=== PATIENT | male | born 1950 | race Two or more races ===

== ENCOUNTER 2019-12-28 05:08 | Inpatient (IN) | payer OTHER ==
[2019-12-28] VITALS (20 sets, daily range): BP systolic 102–138; BP diastolic 60–83
[~2019-12-28] VITALS: Ht 172.7 cm; Wt 83.5 kg
[~2019-12-28 05:08] MED LIST: MULTIVITAMINS1 EAC2 ORAL; vit c PO
[2019-12-28] MEDS ORDERED: ceFAZolin sod 1 GM in NS 55 ML IVPB ONE (07:00)
[2019-12-28] MEDS ORDERED: Bupivacaine 0.5% Inj 30 ml vial INJ ONE (07:15)
[2019-12-28] MEDS ORDERED: ProvayBlue 5mg/ml 10ml amp INJ ONE (07:15)
[2019-12-28] MEDS ORDERED: Succinylcholine 20mg/ml 10ml vial ONE (07:16)
[2019-12-28] MEDS ORDERED: Rocuronium Bromide 50mg/5ml Inj IV ONE (07:16)
[2019-12-28] MEDS ORDERED: Lidocaine 1% MPF 10mg/ml 5ml ONE ×3 (07:30→10:56)
[2019-12-28] MEDS ORDERED: LR 1000ml ONE (08:00)
[2019-12-28] MEDS ORDERED: NS Irrig 1000ml ONE (08:00)
[2019-12-28] MEDS ORDERED: Sterile Water Irrig 1000ml IRRIG ONE (08:00)
--- NOTE | 2019-12-28 08:16 | Pre-Procedure Note/Attestation ---
Pre-Procedure Note/Attestation Complete Prior to Procedure Planned Procedure: not applicable Procedure Narrative: laparoscopic radical prostatectomy Indications for Procedure Pre-Operative Diagnosis: prostate cancer Attestation I attest that I discussed the nature of the procedure; its benefits; risks and complications; and alternatives (and the risks and benefits of such alternatives ), prior to the procedure, with the patient (or the patient's legal account representative). I attest that, if there was a reasonable possibility of needing a blood transfusion, the patient (or the patient's legal account representative) was given the [facility] standardized written summary, pursuant to the Porfirio [place] Blood Safety Act ([place] Health and Safety Code # 1645, as amended). I attest that I re-evaluated the patient just prior to the surgery and that there has been no change in the patient's H&P, except as documented below: Mariano Sims MD December 28, 2019 08:16
[2019-12-28] MEDS ORDERED: Midazolam 2mg/2ml Inj ONE (08:18)
[2019-12-28] MEDS ORDERED: fentaNYL 100 mcg/2 mL IV ONE (08:18)
[2019-12-28] MEDS ORDERED: Morphine Sulfate 10mg/ml Inj ONE (08:40)
[2019-12-28] MEDS ORDERED: Hydromorphone 0.5mg/0.5ml inj IVP PRN (09:00)
[2019-12-28] MEDS ORDERED: DiphenhydrAMINE 50mg/ml Inj IVP PRN (09:00)
[2019-12-28] MEDS ORDERED: Labetalol 5mg/ml 20ml vial IV PRN (09:00)
[2019-12-28] MEDS ORDERED: Acetaminophen (Non formulary) 100 ML IV ONE (09:00)
[2019-12-28] MEDS ORDERED: Metoclopramide 10mg/2ml Inj IVP PRN (09:00)
[2019-12-28] MEDS ORDERED: fentaNYL 100 mcg/2 mL IV PRN (09:00)
[2019-12-28] MEDS ORDERED: Glycopyrrolate 0.2mg/ml 1ml Vial ONE (09:24)
[2019-12-28] MEDS ORDERED: Neostigmine 1mg/ml 10ml Inj ONE (09:24)
[2019-12-28] MEDS ORDERED: ePHEDrine 50mg/ml Inj ONE (09:24)
[2019-12-28] MEDS ORDERED: NS Irrig 1000ml IRRIG ONE (09:31)
--- NOTE | 2019-12-28 10:18 | Anethesia Preoperative Eval ---
Anesthesia Pre-op PMH/ROS General Date of Evaluation: December 28, 2019 Time of Evaluation: 08:00 Anesthesiologist: Gigi ASA Score: ASA 2 Mallampati Score Class I : Soft palate, uvula, fauces, pillars visible Class II: Soft palate, uvula, fauces visible Class III: Soft palate, base of uvula visible Class IV: Only hard plate visible Mallampati Classification: Class II Surgeon: Ashleigh Diagnosis: Prostate CA Surgical Procedure: Radical Prostectomy Anesthesia History: none Social History: current smoker Allergies: Coded Allergies: No Known Allergies (Unverified , 12/27/19) Medications: see eMAR Patient NPO?: Yes NPO Date: December 28, 2019 NPO Time: 00:01 Past Medical History Cardiovascular: Denies: HTN, CAD, MO, valve dz, arrhythmia, other Pulmonary: Denies: asthma, COPD, SHASTA, other Gastrointestinal/Genitourinary: Denies: GERD, CRI, ESRD, other Neurologic/Psychiatric: Reports: depression/anxiety; Denies: dementia, CVA, TIA, other Endocrine: Denies: DM, hypothyroidism, steroids, other HEENT: Denies: cataract (L), cataract (R), glaucoma, CHILKOOT (L), CHILKOOT (R), other Hematology/Immune: Denies: anemia, DVT, bleeding disorder, other Musculoskeletal/Integumentary: Denies: OA, RA, DJD, DDD, edema, other PSxH Narrative: umbilical hernia repair Anesthesia Pre-op Phys. Exam Physician Exam Last Vital Signs Date Time Temp Pulse Resp B/P (MAP) Pulse Ox O2 Delivery O2 Flow Rate FiO2 12/28/19 05:55 Room Air 12/28/19 05:42 97.4 68 18 138/83 (101) 100 Constitutional: NAD Neurologic: CN 2-12 intact Cardiovascular: RRR Respiratory: CTA Gastrointestinal: S/NT/ND Airway Exam Mallampati Classification 2 Mallampati Score: Class II MO: full ROM: full Teeth: missing Dentures: no upper, no lower Anesthesia Pre-op A/P Labs see chart Studies Pre-op Studies: EKG - SR Risk Assessment & Plan Plan: General Status Change Before Surgery: No Pre-Antibiotics Drug: ancef Given Within 1 Hr of Incision: Yes Time Given: 08:20 Erin Yu CRNA December 28, 2019 10:18
[2019-12-28] MEDS ORDERED: Ketorolac 30mg Inj ONE (10:59)
[2019-12-28] MEDS ORDERED: Duramorph PF 10mg/10ml amp ONE (11:06)
--- NOTE | 2019-12-28 11:12 | Brief Operative Note ---
Immediate Post Operative Note Operative Note Pre-op Diagnosis: prostate cancer Procedure: laparoscopic radical prostatectomy Post-op Diagnosis: same Post-op Diagnosis: same as pre-op Surgeon: Sixto Sims Financial Project Manager: Rodriguez Hayes Anesthesia: general Specimen: yes Complications: none Condition: stable Fluids: 3000 Estimated Blood Loss: minimal Implant(s) used?: No Mariano Sims MD December 28, 2019 11:12
[2019-12-28] MEDS ORDERED: Ketorolac 30mg Inj IV PRN (11:15)
[2019-12-28] MEDS ORDERED: HYDROcodone/Acetamin 5/325 tab ORAL PRN (11:15)
--- NOTE | 2019-12-28 11:41 | Immediate Post-Op Evaluation ---
Immediate Post-Op Evalulation Immediate Post-Op Evalulation Procedure: Lap Radical Prostatectomy Date of Evaluation: December 28, 2019 Time of Evaluation: 11:30 IV Fluids: 3000 Blood Products: 0 Estimated Blood Loss: 250 Urinary Output: 100 Blood Pressure Systolic: 130 Blood Pressure Diastolic: 60 Pulse Rate: 75 Respiratory Rate: 14 O2 Sat by Pulse Oximetry: 98 Temperature (Fahrenheit): 97.6 Pain Score (1-10): 0 Nausea: No Vomiting: No Complications none Patient Status: awake, reacts, patent Hydration Status: adequate Drug: ancef Given Within 1 Hr of Incision: Yes Time Given: 08:30 Erin Yu CRNA December 28, 2019 11:41
[2019-12-28 13:05] LABS: ANION GAP 8 mmol/L (5-15); BLOOD UREA NITROGEN 13 mg/dL (7-18); CALCIUM 7.9 MG/DL (8.5-10.1); CARBON DIOXIDE 29 MMOL/L (21-32); CHLORIDE 105 MMOL/L (98-107); CREATININE 0.8 MG/DL (0.55-1.30); POTASSIUM 4.3 MMOL/L (3.5-5.1); SODIUM 142 MMOL/L (136-145)
[2019-12-28 13:26] LABS: HEMATOCRIT 38.1 % (42.0-52.0); HEMOGLOBIN 13.1 G/DL (14.2-18.0); MEAN CORPUSCULAR VOLUME 84 FL (80-99); PLATELET COUNT 466 K/UL (150-450); RED BLOOD COUNT 4.55 M/UL (4.70-6.10); RED CELL DISTRIBUTION WIDTH 15.7 % (11.6-14.8)
[2019-12-28 13:35] LABS: WHITE BLOOD COUNT 25.2 K/UL (4.8-10.8)
[2019-12-28] MEDS: D5 1/2NS w/KCl 20mEq 1,000 ML IV SCH (17:04)
[2019-12-28] MEDS: Docusate 100mg cap ORAL SCH (17:04)
[2019-12-28] MEDS: ceFAZolin 2gm/50ml Premix 50 ML IV SCH (17:09)
[2019-12-29] MEDS: ceFAZolin 2gm/50ml Premix 50 ML IV SCH (00:31)
[2019-12-29] MEDS: D5 1/2NS w/KCl 20mEq 1,000 ML IV SCH (00:31)
[2019-12-29 04:00] VITALS: BP 106/69
[2019-12-29 05:32] LABS: HEMATOCRIT 34.1 % (42.0-52.0); HEMOGLOBIN 11.6 G/DL (14.2-18.0); MEAN CORPUSCULAR VOLUME 83 FL (80-99); PLATELET COUNT 616 K/UL (150-450); RED BLOOD COUNT 4.11 M/UL (4.70-6.10); RED CELL DISTRIBUTION WIDTH 15.8 % (11.6-14.8)
[2019-12-29 05:46] LABS: WHITE BLOOD COUNT 33.7 K/UL (4.8-10.8)
[2019-12-29 05:59] LABS: ANION GAP 12 mmol/L (5-15); BLOOD UREA NITROGEN 22 mg/dL (7-18); CALCIUM 8.1 MG/DL (8.5-10.1); CARBON DIOXIDE 24 MMOL/L (21-32); CHLORIDE 104 MMOL/L (98-107); CREATININE 1.6 MG/DL (0.55-1.30); SODIUM 140 MMOL/L (136-145)
[2019-12-29 08:00] VITALS: BP 120/83
[2019-12-29] MEDS ORDERED: D5 1/2NS w/KCl 20mEq 1,000 ML IV SCH (10:00)
[2019-12-29] MEDS: Docusate 100mg cap ORAL SCH ×2 (10:06→17:43)
[2019-12-29] MEDS: D5 1/2NS 1,000 ML IV SCH ×2 (11:07→20:45)
[2019-12-29 12:00] VITALS: BP 133/93
--- NOTE | 2019-12-29 13:36 | 48 Hour Post Anesthesia Eval ---
Post Anesthesia Evaluation Procedure: Lap Radical Prostatectomy Date of Evaluation: December 29, 2019 Time of Evaluation: 09:20 Blood Pressure Systolic: 124 0: 78 Pulse Rate: 124 Respiratory Rate: 22 Temperature (Fahrenheit): 98.5 O2 Sat by Pulse Oximetry: 94 Airway: patent Nausea: No Vomiting: No Pain Intensity: 3 Hydration Status: adequate Cardiopulmonary Status: stable tachycardic, BP OK, no dyspnea, low urine output Mental Status/LOC: patient returned to baseline Follow-up Care/Observations: follow up on vitals, increase I/V fluids to 150 cc/hr Post-Anesthesia Complications: none Follow-up care needed: N/A Angel Jeffers MD December 29, 2019 13:36
[2019-12-29 16:00] VITALS: BP 144/95
--- NOTE | 2019-12-29 16:08 | Consultation ---
History of Present Illness General Date patient seen: December 29, 2019 Present Illness HPI 69M POD #1 s/p urological surgery with abdominal distention. hx of prostate s/ p Lap Radical Prostatectomy. surgery called to evaluate and assist with post op care. patient seen, chart reviewed, patient examined. states he is okay but feels uncomfortable tolerated clears this AM so far but not much appetite Allergies: Coded Allergies: No Known Allergies (Unverified , 12/27/19) COVID-19 Screening Contact w/high risk pt: No Recent Travel to affected area: No Experienced COVID-19 symptoms?: No Medication History Scheduled Multivitamins* (Multivitamins*), 1 TAB ORAL DAILY, (Reported) [vit c], 500 MG PO DAILY, (Reported) Patient History History Provided By: Patient, Medical Record, PMD Healthcare decision maker Resuscitation status Advanced Directive on File Past Medical/Surgical History Past Medical/Surgical History: (1) Prostate CA Review of Systems Review of Symptoms General ROS: no weight loss or fever Psychological ROS: no depression or mood changes, no memory loss Ophthalmic ROS: no visual changes or eye irritation ENT ROS: no nasal congestion, hearing loss, dizziness Allergy and Immunology ROS: no allergic symptoms or urticaria Hematological and Lymphatic ROS: no swollen glands, unusual bleeding or bruising Endocrine ROS: no polyuria, polydipsia, weight changes, temperature intolerance Respiratory ROS: no cough, shortness of breath, or wheezing Cardiovascular ROS: no chest pain or dyspnea on exertion Gastrointestinal ROS: denies abdominal pain, bright red blood in stool. Musculoskeletal ROS: no myalgias or arthralgias Neurological ROS: no TIA or stroke symptoms Dermatological ROS: no new or changing skin lesions, rashes or pruritis Physical Exam Physical Exam General appearance: alert, cooperative, no distress, appears stated age Head: Normocephalic, without obvious abnormality, atraumatic Eyes: conjunctivae/corneas clear. PERRL, EOM's intact. Fundi benign Throat: Lips, mucosa, and tongue normal. Teeth and gums normal Neck: supple, symmetrical, trachea midline, no adenopathy, thyroid: not enlarged, symmetric, no tenderness/mass/nodules, no carotid bruit and no JVD Lungs: clear to auscultation bilaterally Heart: regular rate and rhythm, S1, S2 normal, no murmur, click, rub or gallop Abdomen: soft, non-tender. Bowel sounds absent, distended, wounds dressings saturated. No masses, no organomegaly Extremities: extremities normal, atraumatic, no cyanosis or edema Pulses: 2+ and symmetric Skin: Skin color, texture, turgor normal. No rashes or lesions Neurologic: Grossly normal Last 24 Hour Vital Signs Date Time Temp Pulse Resp B/P (MAP) Pulse Ox O2 Delivery O2 Flow Rate FiO2 12/29/19 13:36 124 22 94 12/29/19 12:00 98.4 119 20 133/93 (106) 94 12/29/19 10:36 98.6 12/29/19 09:00 Room Air 12/29/19 08:00 98.6 132 21 120/83 (95) 98 12/29/19 04:00 98.6 102 17 106/69 (81) 94 12/28/19 23:56 98.2 106 16 102/65 (77) 93 12/28/19 21:00 Room Air 12/28/19 20:00 98.4 93 17 109/72 (84) 94 12/28/19 17:41 97.7 12/28/19 16:30 97.7 77 18 110/62 (78) 97 Intake and Output 12/28/19 12/29/19 19:00 07:00 Intake Total 3400 ml 950 ml Output Total 950 ml 200 ml Balance 2450 ml 750 ml Intake IV Total 3400 ml 950 ml Output Urine Total 700 ml 200 ml Estimated Blood Loss 250 ml Laboratory Tests Test 12/29/19 04:45 White Blood Count 33.7 K/UL (4.8-10.8) *H Red Blood Count 4.11 M/UL (4.70-6.10) L Hemoglobin 11.6 G/DL (14.2-18.0) L Hematocrit 34.1 % (42.0-52.0) L Mean Corpuscular Volume 83 FL (80-99) Mean Corpuscular Hemoglobin 28.1 PG (27.0-31.0) Mean Corpuscular Hemoglobin Concent 33.9 G/DL (32.0-36.0) Red Cell Distribution Width 15.8 % (11.6-14.8) H Platelet Count 616 K/UL (150-450) H Mean Platelet Volume 7.2 FL (6.5-10.1) Neutrophils (%) (Auto) % (45.0-75.0) Lymphocytes (%) (Auto) % (20.0-45.0) Monocytes (%) (Auto) % (1.0-10.0) Eosinophils (%) (Auto) % (0.0-3.0) Basophils (%) (Auto) % (0.0-2.0) Differential Total Cells Counted 100 Neutrophils % (Manual) 90 % (45-75) H Lymphocytes % (Manual) 2 % (20-45) L Monocytes % (Manual) 6 % (1-10) Eosinophils % (Manual) 0 % (0-3) Basophils % (Manual) 0 % (0-2) Band Neutrophils 2 % (0-8) Platelet Estimate Increased H Platelet Morphology Normal Polychromasia 1+ Anisocytosis 1+ Sodium Level 140 MMOL/L (136-145) Potassium Level 5.0 MMOL/L (3.5-5.1) Chloride Level 104 MMOL/L (98-107) Carbon Dioxide Level 24 MMOL/L (21-32) Anion Gap 12 mmol/L (5-15) Blood Urea Nitrogen 22 mg/dL (7-18) H Creatinine 1.6 MG/DL (0.55-1.30) #H Estimat Glomerular Filtration Rate 43.3 mL/min (>60) Glucose Level 202 MG/DL (74-106) H Calcium Level 8.1 MG/DL (8.5-10.1) L Height (Feet): 5 Height (Inches): 8.00 Weight (Pounds): 184 Medications Current Medications Medications (Trade) Dose Ordered Sig/Juan Carlos Route PRN Reason Start Time Stop Time Status Last Admin Dose Admin Acetaminophen (Tylenol) 650 mg Q4H PRN ORAL FEVER 12/28/19 11:15 01/27/20 11:14 Acetaminophen (Tylenol) 650 mg Q6H PRN ORAL Mild Pain (Pain Scale 1-3) 12/28/19 11:15 01/27/20 11:14 Acetaminophen/ Hydrocodone Bitart (Hawkins 5/325) 1 tab Q4H PRN ORAL Moderate Pain (Pain Scale 4-6) 12/28/19 11:15 01/04/20 11:14 12/28/19 17:11 Dextrose/Sodium Chloride 1,000 ml @ 100 mls/hr Q10H IV 12/29/19 10:45 01/28/20 10:44 12/29/19 11:07 Docusate Sodium (Colace) 100 mg TWICE A DAY ORAL 12/28/19 18:00 01/27/20 17:59 12/29/19 10:06 Hydromorphone HCl (Dilaudid) 2 mg Q3H PRN IVP pain score 7-10 12/28/19 11:15 01/04/20 11:14 12/29/19 10:06 Ondansetron HCl (Zofran) 4 mg Q6H PRN IVP Nausea & Vomiting 12/28/19 11:15 01/27/20 11:14 Temazepam (RestoriL) 7.5 mg DAILYPRN PRN ORAL Insomnia 12/28/19 11:15 01/04/20 11:14 Assessment/Plan Problem List: (1) Prostate CA Assessment & Plan: Abdominal Distention: Pain management: Diet: npo activity as tolerated incentive spirometry goldsmith to stay in clears okay iv fluids abx will monitor abdominal exam dressing change tomorrow thank you ICD Codes: C61 - Malignant neoplasm of prostate SNOMED: [id number] Thomas Lomeli December 29, 2019 16:08
--- NOTE | 2019-12-29 16:30 | Consultation ---
DATE OF CONSULTATION: 12/29/2019 INTERNAL MEDICINE CONSULTATION HISTORY OF PRESENT ILLNESS: This is a 69-year-old male who has undergone prostatectomy yesterday with Dr. Mariano Sims. This was a laparoscopic radical prostatectomy and was uncomplicated with minimal blood loss. The patient states he is feeling better postop day 1. He is on a clear liquid diet. His EBL has been about 250 mL yesterday and his vital signs have been stable overnight. The patient was found to have significant leukocytosis postoperatively. [place] [address], although, he is clinically appears nontoxic. Creatinine is up to 1.6. PAST MEDICAL HISTORY: Notable for prostate CA, hyperlipidemia, history of myelofibrosis, and left inguinal hernia. PAST SURGICAL HISTORY: The patient reports previous prostate surgeries. ALLERGIES: None. REVIEW OF SYSTEMS: Denies any headaches, hematemesis, melena, hematochezia, night sweats, or weight loss. It is noted that his preoperative white count was 15.9 with a hemoglobin of 14. HIV has been negative. PHYSICAL EXAMINATION: GENERAL: Reveals 69-year-old male. HEENT: Unremarkable. CHEST: Clear breath sounds. ABDOMEN: Soft. . NEUROLOGIC: Nonfocal. LABORATORY AND DIAGNOSTIC DATA: Lab testing at this time notable for white count 33,000. Remaining labs are unremarkable. Creatinine 1.6. IMPRESSION: 1. Postoperative day 1 status post prostatectomy. 2. History of myelofibrosis with leukocytosis. 3. Mild renal insufficiency. DISCUSSION: Admitted to the hospital. We will increase IV fluid hydration. Follow CBC. 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 Scottie Mcconnell M.D. DR: Ginger JOB#: [id number] CC:
[2019-12-29 20:00] VITALS: BP 161/108
[2019-12-29 21:59] LABS: HEMATOCRIT 28.3 % (42.0-52.0); HEMOGLOBIN 8.9 G/DL (14.2-18.0); MEAN CORPUSCULAR VOLUME 88 FL (80-99); PLATELET COUNT 533 K/UL (150-450); RED CELL DISTRIBUTION WIDTH 17.7 % (11.6-14.8)
[2019-12-29 22:04] LABS: WHITE BLOOD COUNT 27.2 K/UL (4.8-10.8)
[2019-12-29 22:27] LABS: ANION GAP 11 mmol/L (5-15); BLOOD UREA NITROGEN 28 mg/dL (7-18); CALCIUM 7.3 MG/DL (8.5-10.1); CARBON DIOXIDE 25 MMOL/L (21-32); CHLORIDE 104 MMOL/L (98-107); CREATININE 1.9 MG/DL (0.55-1.30); POTASSIUM 4.5 MMOL/L (3.5-5.1); SODIUM 140 MMOL/L (136-145)
[2019-12-30] VITALS: BP 124/73
[2019-12-30 04:00] VITALS: BP 115/72
[2019-12-30] MEDS: D5 1/2NS 1,000 ML IV SCH ×2 (05:48→17:19)
[2019-12-30 05:53] LABS: HEMATOCRIT 23.3 % (42.0-52.0); MEAN CORPUSCULAR VOLUME 83 FL (80-99); PLATELET COUNT 442 K/UL (150-450); RED BLOOD COUNT 2.82 M/UL (4.70-6.10); RED CELL DISTRIBUTION WIDTH 15.2 % (11.6-14.8); WHITE BLOOD COUNT 21.7 K/UL (4.8-10.8)
[2019-12-30 06:11] LABS: ANION GAP 8 mmol/L (5-15); BLOOD UREA NITROGEN 28 mg/dL (7-18); CARBON DIOXIDE 26 MMOL/L (21-32); CHLORIDE 106 MMOL/L (98-107); CREATININE 1.6 MG/DL (0.55-1.30); POTASSIUM 4.6 MMOL/L (3.5-5.1); SODIUM 140 MMOL/L (136-145)
[2019-12-30 08:00] VITALS: BP 123/72
[2019-12-30] MEDS: Docusate 100mg cap ORAL SCH ×2 (08:42→18:23)
[2019-12-30] MEDS: ceFAZolin sod 1 GM in D5W 55 ML IVPB SCH ×2 (08:42→17:19)
--- NOTE | 2019-12-30 10:45 | Diagnostic Imaging Report ---
EXAM: ULTRASOUND US Renal Comp CLINICAL HISTORY: Abdominal pain. Status post prostatectomy. COMPARISON: None TECHNIQUE: Ultrasound examination of the kidneys includes grayscale images, and color and spectral doppler analysis. FINDINGS: The right kidney measures 11.8 x 6.6 x 6.6 cm and the left kidney measures 13.1 x 6.3 x 6.2 cm. Cortical thickness and echogenicity are within normal limits. There is no hydronephrosis or stone seen bilaterally. Cuevas catheter noted in the bladder. IMPRESSION: NO SIGN OF ACUTE DISEASE.
--- NOTE | 2019-12-30 11:37 | Pulmonology Progress Note ---
Subjective Interval Events: None new Constitutional: Reports: no symptoms HEENT: Repors: no symptoms Respiratory: Reports: no symptoms Cardiovascular: Reports: no symptoms Allergies: Coded Allergies: No Known Allergies (Unverified , 12/27/19) Objective Last 24 Hour Vital Signs Date Time Temp Pulse Resp B/P (MAP) Pulse Ox O2 Delivery O2 Flow Rate FiO2 12/30/19 09:00 Room Air 12/30/19 08:00 97.8 109 20 123/72 (89) 98 12/30/19 04:00 98.3 95 19 115/72 (86) 96 12/30/19 00:00 99.0 108 20 124/73 (90) 94 12/29/19 21:00 Room Air 12/29/19 20:00 98.0 132 19 161/108 (125) 94 12/29/19 18:14 98.1 12/29/19 16:00 98.1 115 21 144/95 (111) 95 12/29/19 13:36 124 22 94 12/29/19 12:00 98.4 119 20 133/93 (106) 94 Intake and Output 12/29/19 12/30/19 19:00 07:00 Intake Total 900 ml Output Total 825 ml Balance 75 ml Intake IV Total 900 ml Output Urine Total 575 ml Estimated Blood Loss 250 ml # Voids 1 General Appearance: no acute distress HEENT: normocephalic Respiratory: chest wall non-tender, lungs clear Cardiovascular: normal peripheral pulses Abdomen: normal bowel sounds Microbiology Date/Time Source Procedure Growth Status 12/28/19 05:30 Nasal Nares MRSA Culture - Final NO METHICILLIN RESISTANT STAPH AUREUS... Complete 12/27/19 12:10 Nasopharynx Coronavirus COVID-19 PCR ([facility]) - Final Complete Laboratory Tests 12/29/19 21:45: White Blood Count 27.2*H, Red Blood Count 3.20L, Hemoglobin 8.9L, Hematocrit 28.3L, Mean Corpuscular Volume 88, Mean Corpuscular Hemoglobin 27.9, Mean Corpuscular Hemoglobin Concent 31.6L, Red Cell Distribution Width 17.7H, Platelet Count 533H, Mean Platelet Volume 7.1, Neutrophils (%) (Auto) , Lymphocytes (%) (Auto) , Monocytes (%) (Auto) , Eosinophils (%) (Auto) , Basophils (%) (Auto) , Differential Total Cells Counted 100, Neutrophils % ( Manual) 89H, Lymphocytes % (Manual) 3L, Monocytes % (Manual) 6, Eosinophils % ( Manual) 1, Basophils % (Manual) 0, Band Neutrophils 1, Nucleated Red Blood Cells 2, Platelet Estimate IncreasedH, Platelet Morphology Normal, Polychromasia 1+, Hypochromasia 1+, Anisocytosis 1+, Sodium Level 140, Potassium Level 4.5, Chloride Level 104, Carbon Dioxide Level 25, Anion Gap 11, Blood Urea Nitrogen 28H, Creatinine 1.9H, Estimat Glomerular Filtration Rate 35.5, Glucose Level 159H, Calcium Level 7.3L 12/30/19 05:10: White Blood Count 21.7H, Red Blood Count 2.82L, Hemoglobin 8.0L, Hematocrit 23.3L, Mean Corpuscular Volume 83, Mean Corpuscular Hemoglobin 28.5, Mean Corpuscular Hemoglobin Concent 34.5, Red Cell Distribution Width 15.2H, Platelet Count 442, Mean Platelet Volume 6.1L, Neutrophils (%) (Auto) , Lymphocytes (%) (Auto) , Monocytes (%) (Auto) , Eosinophils (%) (Auto) , Basophils (%) (Auto) , Differential Total Cells Counted 100, Neutrophils % ( Manual) 91H, Lymphocytes % (Manual) 6L, Monocytes % (Manual) 1, Eosinophils % ( Manual) 1, Basophils % (Manual) 1, Band Neutrophils 0, Nucleated Red Blood Cells 2, Platelet Estimate Adequate, Platelet Morphology Normal, Hypochromasia 2 +, Anisocytosis 1+, Sodium Level 140, Potassium Level 4.6, Chloride Level 106, Carbon Dioxide Level 26, Anion Gap 8, Blood Urea Nitrogen 28H, Creatinine 1.6H, Estimat Glomerular Filtration Rate 43.3, Glucose Level 141H, Calcium Level 7.0L Current Medications Medications (Trade) Dose Ordered Sig/Juan Carlos Route PRN Reason Start Time Stop Time Status Last Admin Dose Admin Acetaminophen (Tylenol) 650 mg Q4H PRN ORAL FEVER 12/28/19 11:15 01/27/20 11:14 Acetaminophen (Tylenol) 650 mg Q6H PRN ORAL Mild Pain (Pain Scale 1-3) 12/28/19 11:15 01/27/20 11:14 Acetaminophen/ Hydrocodone Bitart (Curran 5/325) 1 tab Q4H PRN ORAL Moderate Pain (Pain Scale 4-6) 12/28/19 11:15 01/04/20 11:14 12/28/19 17:11 Cefazolin Sodium 1 gm/Dextrose 55 ml @ 110 mls/hr Q8H IVPB 12/30/19 09:00 01/06/20 08:59 12/30/19 08:42 Dextrose/Sodium Chloride 1,000 ml @ 100 mls/hr Q10H IV 12/29/19 10:45 01/28/20 10:44 12/29/19 20:45 Docusate Sodium (Colace) 100 mg TWICE A DAY ORAL 12/28/19 18:00 01/27/20 17:59 12/30/19 08:42 Hydromorphone HCl (Dilaudid) 2 mg Q3H PRN IVP pain score 7-10 12/28/19 11:15 01/04/20 11:14 12/30/19 03:16 Ondansetron HCl (Zofran) 4 mg Q6H PRN IVP Nausea & Vomiting 12/28/19 11:15 01/27/20 11:14 Temazepam (RestoriL) 7.5 mg DAILYPRN PRN ORAL Insomnia 12/28/19 11:15 01/04/20 11:14 Assessment/Plan Assessment/Plan IMPRESSION: 1. Postoperative day 2 status post prostatectomy. 2. History of myelodysplasia with leukocytosis. 3. Mild renal insufficiency. DISCUSSION: Admitted to the hospital. Continue IV fluid. Follow CBC. 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 Transfuse prbc Carlos So Omar Syed MD December 30, 2019 11:37
[2019-12-30 12:00] VITALS: BP 161/91
[2019-12-30] MEDS ORDERED: D5 1/2NS 1000ml IV ONE (12:43)
[2019-12-30] MEDS ORDERED: NS 500ML ONE (12:43)
[2019-12-30] MEDS ORDERED: NS Irrig 1000ml ONE (12:43)
--- NOTE | 2019-12-30 13:18 | Surgery Progress Note ---
Surgery Progress Note Subjective Additional Comments anemia being transfused tolerating clears but no flatus or bm bowel sounds decreased had goldsmith clot and irrigated now good uop cr improved us noted Objective Last 24 Hour Vital Signs Date Time Temp Pulse Resp B/P (MAP) Pulse Ox O2 Delivery O2 Flow Rate FiO2 12/30/19 12:15 98.8 12/30/19 12:00 98.8 111 20 161/91 (114) 98 12/30/19 09:00 Room Air 12/30/19 08:00 97.8 109 20 123/72 (89) 98 12/30/19 04:00 98.3 95 19 115/72 (86) 96 12/30/19 00:00 99.0 108 20 124/73 (90) 94 12/29/19 21:00 Room Air 12/29/19 20:00 98.0 132 19 161/108 (125) 94 12/29/19 16:00 98.1 115 21 144/95 (111) 95 12/29/19 13:36 124 22 94 I&O Intake and Output 12/29/19 12/30/19 19:00 07:00 Intake Total 900 ml Output Total 825 ml Balance 75 ml Intake IV Total 900 ml Output Urine Total 575 ml Estimated Blood Loss 250 ml # Voids 1 Dressing: dry Wound: clean Cardiovascular: RSR Respiratory: clear Abdomen: soft, distended, non-tender, decreased bowel sounds Extremities: no edema, no tenderness, no cyanosis Laboratory Tests Test 12/29/19 21:45 12/30/19 05:10 White Blood Count 27.2 K/UL (4.8-10.8) *H 21.7 K/UL (4.8-10.8) H Red Blood Count 3.20 M/UL (4.70-6.10) L 2.82 M/UL (4.70-6.10) L Hemoglobin 8.9 G/DL (14.2-18.0) L 8.0 G/DL (14.2-18.0) L Hematocrit 28.3 % (42.0-52.0) L 23.3 % (42.0-52.0) L Mean Corpuscular Volume 88 FL (80-99) 83 FL (80-99) Mean Corpuscular Hemoglobin 27.9 PG (27.0-31.0) 28.5 PG (27.0-31.0) Mean Corpuscular Hemoglobin Concent 31.6 G/DL (32.0-36.0) L 34.5 G/DL (32.0-36.0) Red Cell Distribution Width 17.7 % (11.6-14.8) H 15.2 % (11.6-14.8) H Platelet Count 533 K/UL (150-450) H 442 K/UL (150-450) Mean Platelet Volume 7.1 FL (6.5-10.1) 6.1 FL (6.5-10.1) L Neutrophils (%) (Auto) % (45.0-75.0) % (45.0-75.0) Lymphocytes (%) (Auto) % (20.0-45.0) % (20.0-45.0) Monocytes (%) (Auto) % (1.0-10.0) % (1.0-10.0) Eosinophils (%) (Auto) % (0.0-3.0) % (0.0-3.0) Basophils (%) (Auto) % (0.0-2.0) % (0.0-2.0) Differential Total Cells Counted 100 100 Neutrophils % (Manual) 89 % (45-75) H 91 % (45-75) H Lymphocytes % (Manual) 3 % (20-45) L 6 % (20-45) L Monocytes % (Manual) 6 % (1-10) 1 % (1-10) Eosinophils % (Manual) 1 % (0-3) 1 % (0-3) Basophils % (Manual) 0 % (0-2) 1 % (0-2) Band Neutrophils 1 % (0-8) 0 % (0-8) Nucleated Red Blood Cells 2 /100 WBC 2 /100 WBC Platelet Estimate Increased H Adequate Platelet Morphology Normal Normal Polychromasia 1+ Hypochromasia 1+ 2+ Anisocytosis 1+ 1+ Sodium Level 140 MMOL/L (136-145) 140 MMOL/L (136-145) Potassium Level 4.5 MMOL/L (3.5-5.1) 4.6 MMOL/L (3.5-5.1) Chloride Level 104 MMOL/L (98-107) 106 MMOL/L (98-107) Carbon Dioxide Level 25 MMOL/L (21-32) 26 MMOL/L (21-32) Anion Gap 11 mmol/L (5-15) 8 mmol/L (5-15) Blood Urea Nitrogen 28 mg/dL (7-18) H 28 mg/dL (7-18) H Creatinine 1.9 MG/DL (0.55-1.30) H 1.6 MG/DL (0.55-1.30) H Estimat Glomerular Filtration Rate 35.5 mL/min (>60) 43.3 mL/min (>60) Glucose Level 159 MG/DL (74-106) H 141 MG/DL (74-106) H Calcium Level 7.3 MG/DL (8.5-10.1) L 7.0 MG/DL (8.5-10.1) L Plan Problems: (1) Prostate CA Assessment & Plan: Abdominal Distention: Pain management: Diet: npo activity as tolerated incentive spirometry goldsmith to stay in clears [place] iv fluids abx will monitor abdominal exam dressing prn still distended tolerating clears do not advance diet yet ambulate and out of bed monitor uop thank you Thomas Lomeli December 30, 2019 13:18
[2019-12-30 16:00] VITALS: BP 124/72
[2019-12-30 18:25] LABS: HEMATOCRIT 28.8 % (42.0-52.0); HEMOGLOBIN 9.1 G/DL (14.2-18.0); MEAN CORPUSCULAR VOLUME 90 FL (80-99); PLATELET COUNT 410 K/UL (150-450); RED CELL DISTRIBUTION WIDTH 17.6 % (11.6-14.8); WHITE BLOOD COUNT 17.4 K/UL (4.8-10.8)
[2019-12-30 18:35] LABS: BASOPHILS % (AUTO) 1.1 % (0.0-2.0); EOSINOPHILS % (AUTO) 4.9 % (0.0-3.0); LYMPHOCYTES % (AUTO) 5.2 % (20.0-45.0); MONOCYTES % (AUTO) 2.7 % (1.0-10.0); NEUTROPHILS % (AUTO) 86.1 % (45.0-75.0)
[2019-12-30 19:02] LABS: ANION GAP 8 mmol/L (5-15); BLOOD UREA NITROGEN 25 mg/dL (7-18); CALCIUM 7.5 MG/DL (8.5-10.1); CARBON DIOXIDE 26 MMOL/L (21-32); CHLORIDE 105 MMOL/L (98-107); CREATININE 1.4 MG/DL (0.55-1.30); POTASSIUM 4.2 MMOL/L (3.5-5.1); SODIUM 139 MMOL/L (136-145)
[2019-12-30 20:00] VITALS: BP 139/78
[2019-12-31] VITALS: BP 124/72
[2019-12-31] MEDS: ceFAZolin sod 1 GM in D5W 55 ML IVPB SCH ×2 (00:39→08:20)
[2019-12-31 04:00] VITALS: BP 137/74
[2019-12-31] MEDS: D5 1/2NS 1,000 ML IV SCH (05:33)
[2019-12-31 06:16] LABS: HEMATOCRIT 25.8 % (42.0-52.0); MEAN CORPUSCULAR VOLUME 84 FL (80-99); PLATELET COUNT 365 K/UL (150-450); RED BLOOD COUNT 3.09 M/UL (4.70-6.10); RED CELL DISTRIBUTION WIDTH 15.4 % (11.6-14.8); WHITE BLOOD COUNT 18.2 K/UL (4.8-10.8)
[2019-12-31 06:47] LABS: ALANINE AMINOTRANSFERASE 12 U/L (12-78); ALBUMIN/GLOBULIN RATIO 1.1 (1.0-2.7); ALKALINE PHOSPHATASE 68 U/L (46-116); ANION GAP 7 mmol/L (5-15); ASPARTATE AMINO TRANSFERASE 19 U/L (15-37); BILIRUBIN,TOTAL 0.9 MG/DL (0.2-1.0); BLOOD UREA NITROGEN 18 mg/dL (7-18); CARBON DIOXIDE 28 MMOL/L (21-32); CHLORIDE 104 MMOL/L (98-107); CREATININE 1.1 MG/DL (0.55-1.30); POTASSIUM 4.3 MMOL/L (3.5-5.1); SODIUM 139 MMOL/L (136-145)
[2019-12-31 08:00] VITALS: BP 142/92
[2019-12-31] MEDS: Docusate 100mg cap ORAL SCH (08:20)
--- NOTE | 2019-12-31 09:27 | Diagnostic Imaging Report ---
EXAM: XR Abdomen, 2 Views CLINICAL HISTORY: F/U TECHNIQUE: Frontal portable supine views of the abdomen and pelvis. COMPARISON: Renal ultrasound dated 12/30/19 FINDINGS: Lower thorax: Subsegmental atelectasis versus infiltrates in bilateral lung bases. Mild elevation of the right hemidiaphragm. Intraperitoneal space: No free air seen. Gastrointestinal tract: Nonspecific mild gaseous distention of colonic and small bowel loops, which otherwise remain within normal limits in diameter. No luminal air-fluid levels identified. No evidence of pneumatosis intestinalis. Organs: The renal shadows are partially obscured by overlying gas. No evidence of organomegaly. No portal venous gas identified. Bones/joints: Degenerative changes throughout the visualized spine. Regions clips seen adjacent to the right transverse processes of L1 and L2. Soft tissues: Radiodense clips seen in the pelvis bilaterally. IMPRESSION: 1. Nonspecific mild gaseous distention of colonic and small bowel loops, which otherwise remain within normal limits in diameter. 2. Subsegmental atelectasis versus infiltrates in bilateral lung bases.
--- NOTE | 2019-12-31 10:32 | Pulmonology Progress Note ---
Subjective Interval Events: None new Constitutional: Reports: no symptoms HEENT: Repors: no symptoms Respiratory: Reports: no symptoms Cardiovascular: Reports: no symptoms Allergies: Coded Allergies: No Known Allergies (Unverified , 12/27/19) Objective Last 24 Hour Vital Signs Date Time Temp Pulse Resp B/P (MAP) Pulse Ox O2 Delivery O2 Flow Rate FiO2 12/31/19 09:00 Room Air 12/31/19 08:00 98.4 87 21 142/92 (109) 97 12/31/19 04:00 98.2 95 20 137/74 (95) 98 12/31/19 00:00 98.0 92 20 124/72 (89) 98 12/30/19 21:00 Room Air 12/30/19 20:00 98.5 100 20 139/78 (98) 98 12/30/19 19:00 98.3 12/30/19 16:00 98.3 90 20 124/72 (89) 98 12/30/19 12:00 98.8 111 20 161/91 (114) 98 Intake and Output 12/30/19 12/31/19 19:00 07:00 Intake Total 1200 ml Output Total 1200 ml Balance 0 ml Intake IV Total 1200 ml Output Urine Total 1200 ml General Appearance: no acute distress HEENT: normocephalic Respiratory: chest wall non-tender, lungs clear Cardiovascular: normal peripheral pulses Abdomen: normal bowel sounds Laboratory Tests 12/30/19 18:00: White Blood Count 17.4H, Red Blood Count 3.20L, Hemoglobin 9.1L, Hematocrit 28.8L, Mean Corpuscular Volume 90#, Mean Corpuscular Hemoglobin 28.4, Mean Corpuscular Hemoglobin Concent 31.4L, Red Cell Distribution Width 17.6H, Platelet Count 410, Mean Platelet Volume 7.2, Neutrophils (%) (Auto) 86.1H, Lymphocytes (%) (Auto) 5.2L, Monocytes (%) (Auto) 2.7, Eosinophils (%) (Auto) 4.9H, Basophils (%) (Auto) 1.1 12/30/19 18:05: Sodium Level 139, Potassium Level 4.2, Chloride Level 105, Carbon Dioxide Level 26, Anion Gap 8, Blood Urea Nitrogen 25H, Creatinine 1.4H, Estimat Glomerular Filtration Rate 50.5, Glucose Level 124H, Calcium Level 7.5L 12/31/19 05:30: White Blood Count 18.2H, Red Blood Count 3.09L, Hemoglobin 9.0L, Hematocrit 25.8L, Mean Corpuscular Volume 84, Mean Corpuscular Hemoglobin 29.0, Mean Corpuscular Hemoglobin Concent 34.7, Red Cell Distribution Width 15.4H, Platelet Count 365, Mean Platelet Volume 6.0L, Neutrophils (%) (Auto) , Lymphocytes (%) (Auto) , Monocytes (%) (Auto) , Eosinophils (%) (Auto) , Basophils (%) (Auto) , Sodium Level 139, Potassium Level 4.3, Chloride Level 104 , Carbon Dioxide Level 28, Anion Gap 7, Blood Urea Nitrogen 18, Creatinine 1.1, Estimat Glomerular Filtration Rate > 60, Glucose Level 124H, Calcium Level 8.0L , Neutrophils % (Manual) [Pending], Lymphocytes % (Manual) [Pending], Platelet Estimate [Pending], Platelet Morphology [Pending], Total Bilirubin 0.9, Aspartate Amino Transf (AST/SGOT) 19, Alanine Aminotransferase (ALT/SGPT) 12, Alkaline Phosphatase 68, Total Protein 5.7L, Albumin 3.0L, Globulin 2.7, Albumin /Globulin Ratio 1.1 Current Medications Medications (Trade) Dose Ordered Sig/Juan Carlos Route PRN Reason Start Time Stop Time Status Last Admin Dose Admin Acetaminophen (Tylenol) 650 mg Q4H PRN ORAL FEVER 12/28/19 11:15 01/27/20 11:14 Acetaminophen (Tylenol) 650 mg Q6H PRN ORAL Mild Pain (Pain Scale 1-3) 12/28/19 11:15 01/27/20 11:14 12/31/19 05:41 Acetaminophen/ Hydrocodone Bitart (Sharon 5/325) 1 tab Q4H PRN ORAL Moderate Pain (Pain Scale 4-6) 12/28/19 11:15 01/04/20 11:14 12/28/19 17:11 Cefazolin Sodium 1 gm/Dextrose 55 ml @ 110 mls/hr Q8H IVPB 12/30/19 09:00 01/06/20 08:59 12/31/19 08:20 Docusate Sodium (Colace) 100 mg TWICE A DAY ORAL 12/28/19 18:00 01/27/20 17:59 12/31/19 08:20 Hydromorphone HCl (Dilaudid) 2 mg Q3H PRN IVP pain score 7-10 12/28/19 11:15 01/04/20 11:14 12/31/19 08:21 Ondansetron HCl (Zofran) 4 mg Q6H PRN IVP Nausea & Vomiting 12/28/19 11:15 01/27/20 11:14 Temazepam (RestoriL) 7.5 mg DAILYPRN PRN ORAL Insomnia 12/28/19 11:15 01/04/20 11:14 Assessment/Plan Assessment/Plan IMPRESSION: 1. Postoperative day 3 status post prostatectomy. 2. History of myelodysplasia with leukocytosis. 3. Mild renal insufficiency. DISCUSSION: On regular diet Cuevas in place +BM Will dc home Carlos So Omar Syed MD December 31, 2019 10:32
[2019-12-31] MEDS ORDERED: NORCO 5-325 TA1 EAC1 ORAL (10:34)
[2019-12-31] MEDS ORDERED: LEVAQUIN500 MG ORAL (10:34)
[2019-12-31] MEDS ORDERED: COLACE100 MG ORAL (10:34)
--- NOTE | 2019-12-31 10:45 | Surgery Progress Note ---
Surgery Progress Note Subjective Additional Comments no acute events labs reviewed exam stable comfortable passing flatus comfortable wound c/d/i Objective Last 24 Hour Vital Signs Date Time Temp Pulse Resp B/P (MAP) Pulse Ox O2 Delivery O2 Flow Rate FiO2 12/31/19 09:00 Room Air 12/31/19 08:00 98.4 87 21 142/92 (109) 97 12/31/19 04:00 98.2 95 20 137/74 (95) 98 12/31/19 00:00 98.0 92 20 124/72 (89) 98 12/30/19 21:00 Room Air 12/30/19 20:00 98.5 100 20 139/78 (98) 98 12/30/19 19:00 98.3 12/30/19 16:00 98.3 90 20 124/72 (89) 98 12/30/19 12:00 98.8 111 20 161/91 (114) 98 I&O Intake and Output 12/30/19 12/31/19 19:00 07:00 Intake Total 1200 ml Output Total 1200 ml Balance 0 ml Intake IV Total 1200 ml Output Urine Total 1200 ml Dressing: other Wound: other Drains: other Cardiovascular: RSR Respiratory: decreased breath sounds Abdomen: soft, non-tender, present bowel sounds Extremities: no cyanosis Laboratory Tests Test 12/30/19 18:00 12/30/19 18:05 12/31/19 05:30 White Blood Count 17.4 K/UL (4.8-10.8) H 18.2 K/UL (4.8-10.8) H Red Blood Count 3.20 M/UL (4.70-6.10) L 3.09 M/UL (4.70-6.10) L Hemoglobin 9.1 G/DL (14.2-18.0) L 9.0 G/DL (14.2-18.0) L Hematocrit 28.8 % (42.0-52.0) L 25.8 % (42.0-52.0) L Mean Corpuscular Volume 90 FL (80-99) # 84 FL (80-99) Mean Corpuscular Hemoglobin 28.4 PG (27.0-31.0) 29.0 PG (27.0-31.0) Mean Corpuscular Hemoglobin Concent 31.4 G/DL (32.0-36.0) L 34.7 G/DL (32.0-36.0) Red Cell Distribution Width 17.6 % (11.6-14.8) H 15.4 % (11.6-14.8) H Platelet Count 410 K/UL (150-450) 365 K/UL (150-450) Mean Platelet Volume 7.2 FL (6.5-10.1) 6.0 FL (6.5-10.1) L Neutrophils (%) (Auto) 86.1 % (45.0-75.0) H % (45.0-75.0) Lymphocytes (%) (Auto) 5.2 % (20.0-45.0) L % (20.0-45.0) Monocytes (%) (Auto) 2.7 % (1.0-10.0) % (1.0-10.0) Eosinophils (%) (Auto) 4.9 % (0.0-3.0) H % (0.0-3.0) Basophils (%) (Auto) 1.1 % (0.0-2.0) % (0.0-2.0) Sodium Level 139 MMOL/L (136-145) 139 MMOL/L (136-145) Potassium Level 4.2 MMOL/L (3.5-5.1) 4.3 MMOL/L (3.5-5.1) Chloride Level 105 MMOL/L (98-107) 104 MMOL/L (98-107) Carbon Dioxide Level 26 MMOL/L (21-32) 28 MMOL/L (21-32) Anion Gap 8 mmol/L (5-15) 7 mmol/L (5-15) Blood Urea Nitrogen 25 mg/dL (7-18) H 18 mg/dL (7-18) Creatinine 1.4 MG/DL (0.55-1.30) H 1.1 MG/DL (0.55-1.30) Estimat Glomerular Filtration Rate 50.5 mL/min (>60) > 60 mL/min (>60) Glucose Level 124 MG/DL (74-106) H 124 MG/DL (74-106) H Calcium Level 7.5 MG/DL (8.5-10.1) L 8.0 MG/DL (8.5-10.1) L Differential Total Cells Counted 100 Neutrophils % (Manual) 88 % (45-75) H Lymphocytes % (Manual) 4 % (20-45) L Monocytes % (Manual) 3 % (1-10) Eosinophils % (Manual) 4 % (0-3) H Basophils % (Manual) 1 % (0-2) Band Neutrophils 0 % (0-8) Platelet Estimate Adequate Platelet Morphology Normal Hypochromasia 2+ Anisocytosis 1+ Total Bilirubin 0.9 MG/DL (0.2-1.0) Aspartate Amino Transf (AST/SGOT) 19 U/L (15-37) Alanine Aminotransferase (ALT/SGPT) 12 U/L (12-78) Alkaline Phosphatase 68 U/L (46-116) Total Protein 5.7 G/DL (6.4-8.2) L Albumin 3.0 G/DL (3.4-5.0) L Globulin 2.7 g/dL Albumin/Globulin Ratio 1.1 (1.0-2.7) Plan Problems: (1) Prostate CA Assessment & Plan: Abdominal Distention: Pain management: Diet: npo activity as tolerated incentive spirometry goldsmith to stay in clears okay iv fluids abx will monitor abdominal exam dressing prn still distended tolerating clears do not advance diet yet ambulate and out of bed monitor uop thank you adv to regular diet passing flatus rx written Thomas Lomeli December 31, 2019 10:45
[2019-12-31 12:03] VITALS: BP 121/74
[2019-12-31] MEDS ORDERED: D5 1/2NS 1000ml IV ONE (12:09)
[2019-12-31] MEDS ORDERED: NS Irrig 1000ml ONE (12:09)
[2019-12-31] MEDS ORDERED: D5NS 1000ml IV ONE (12:09)
--- NOTE | 2020-01-03 12:31 | Discharge Summary ---
Discharge Summary Hospital Course Date of Admission December 28, 2019 at 05:08 Date of Discharge December 31, 2019 at 12:10 Admitting Diagnosis prostate cancer Reason for Hospitalization: elective surgery HPI Javier Rush is a 69 year old male who was admitted on December 28, 2019 at 05: 08 for Prostate Cancer Consultations Dr Hodges - general surgery Dr Mcconnell - IM/pulmo Procedures s/p 12/28/[address] Sims laparoscopic radical prostatectomy Hospital Course status post surgery /laparoscopic radical prostatectomy on 520 course of recovery uneventful initially IV fluids and kept n.p.o. perioperative antibiotic incision clean dry and intact with dressing pain management addressed , and pain was controlled remained hemodynamically stable patient mobilized out of bed as tolerated incentive spirometry was encouraged when in the bed when GI function returned, patient slowly started on clear liquid diet and was advanced as tolerated a/emetic were on board as needed general surgeon closely followed with serial abdominal exams patient was able to tolerate diet , IV fluids discontinued GI prophylaxis provided bowel regimen instituted patient with history of myelodysplasia initially presented with significant leukocytosis , WBC over 30,000. patient was on empiric antibiotics leukocytosis trending down; prior to discharge WBC 18.2, no fevers renal parameters and electrolytes were closely monitored nephrotoxic's were avoided with IV hydration renal insufficiency resolved : BUN from 22 down to 18, creatinine from 1.6 down to 1.1. hemoglobin dropped to 8.0. patient undergone transfusion of 2 units of packed red blood cells prior to discharge hemoglobin 9, hematocrit 25.8. patient was working with physical therapist fall precautions maintained patient was safe for ambulation patient was stable for discharge with Cuevas in place discharge instructions provided scripts provided follow up with surgeon as advised FINAL DIAGNOSES prostate cancer s/p laparoscopic radical prostatectomy History of myelodysplasia Leukocytosis -improved Mild renal insufficiency -resolved Discharge Medications New Medications: Levofloxacin* (Levaquin*) 500 Mg Tablet 500 MG ORAL DAILY for 7 Days, #7 TAB Docusate Sodium* (Colace*) 100 Mg Capsule 100 MG ORAL TWICE A DAY for 10 Days, #20 CAP Hydrocodone Bit/Acetaminophen 5-325* ([place] 5-325 Tablet*) 1 Each Tablet 1 TAB ORAL Q4H PRN for 7 Days, #20 TAB Discharge Condition Upon Discharge: stable Discharge Vital Signs Last Vital Signs Date Time Temp Pulse Resp B/P (MAP) Pulse Ox O2 Delivery O2 Flow Rate FiO2 12/31/19 12:03 97.7 80 19 121/74 (90) 99 12/31/19 09:00 Room Air 12/28/19 13:11 3 Discharge Disposition Patient was discharged to Home (01) Discharge Instructions Discharge Instructions Special Instructions I have been assigned to complete a D/C Summary on this account. I was not involved in the patient management Ginette Simpson NP January 03, 2020 12:31
--- NOTE | 2020-01-10 10:45 | Operative Note - Dictated ---
DATE OF OPERATION: 12/28/2019 PREOPERATIVE DIAGNOSIS: Prostate cancer. POSTOPERATIVE DIAGNOSIS: Prostate cancer. OPERATION: Laparoscopic radical retropubic prostatectomy. [employer] DIRECTOR: Mariano Sims MD [employer] MANAGER: Rodriguez Hayes MD FINDINGS: Enlarged prostate, multiple bowel adhesions. INDICATION FOR SURGERY: Patient was diagnosed with high-grade prostate cancer. Treatment options were explained to him in great length including all potential complications. He elected to have laparoscopic surgery. Again, all potential complications were explained. He signed a consent. DESCRIPTION OF OPERATION: He was brought to the operating room, placed in supine position. Prepped and draped in standard fashion. Under general anesthesia, an incision was made on the lateral side of his previous abdominal incision and using Visiport, abdomen was entered. There were multiple adhesions from his previous abdominal surgery. these adhesions from the front side of the abdomen and additional 4 trocars, two 12s and two 5s were placed in standard position. Dissection started behind the bladder mobilizing seminal vesicles and vas deferens, which was clipped and severed exposing the fascia. After that, dissection was carried anteriorly, he had a large left inguinal hernia that was left intact. However, we gained access to the bladder and the fascia was opened with Harmonic Scalpel. Endo-MITZY was used for dorsal venous complex. Bladder neck sparing technique was used to separate the prostate from the bladder and then prostate was removed preserving both neurovascular bundles. After that, he was reapproximated with running 2-0 Monocryl sutures to the urethra and the bladder neck with a 20-[place] Cuevas catheter. No evidence for acute bleeding. Surgicel and FloSeal were placed. Abdomen was drained, and wounds were closed in separate layers. Allen for the skin. Patient tolerated the procedure well. No complications. Mariano Sims M.D. DR: SAWYER JOB#: [id number] CC: MÓNICA
== END 2019-12-31 12:10 | disposition home or self-care (01) | DRG 707 ==
LOC: SDSOVERFLO 05:08 → 3E 13:20
PROC: 0VT00ZZ Resection of Prostate, Open Approach (ICD-10-PCS; 2019-12-28)
PROC: 30233N1 Transfusion of Nonautologous Red Blood Cells into Peripheral Vein, Percutaneous Approach (ICD-10-PCS; principal; 2019-12-30)
DX: C61 Malignant neoplasm of prostate (principal); D47.1 Chronic myeloproliferative disease; R14.0 Abdominal distension (gaseous); N28.9 Disorder of kidney and ureter, unspecified; E78.1 Pure hyperglyceridemia; K40.90 Unilateral inguinal hernia, without obstruction or gangrene, not specified as recurrent
CPT/HCPCS: 36415; 74018; 76770; 80048; 80053; 85007; 85025; 86850; 86900; 86901; 86920; 87081; 94003; 94150; J2250; J2405; J2710; J2765; J7030

== ENCOUNTER 2020-01-02 22:13 | Inpatient (IN) | payer OTHER ==
[~2020-01-02] VITALS: Ht 172.7 cm; Wt 83.1 kg
[~2020-01-02 22:13] MED LIST changes: +COLACE100 MG ORAL; +LEVAQUIN500 MG ORAL; +NORCO 5-325 TA1 EAC1 ORAL
[2020-01-02 22:18] VITALS: BP 194/111
--- NOTE | 2020-01-02 22:18 | NUR ---
ED Nurse Note: Walk-in patient with complaints of decreased urine output and increased abdominal pain today. Patient is post-op prostatectomy, Dr. Lomeli. Will continue to monitor.
--- NOTE | 2020-01-02 22:42 | Emergency Room Report ---
History of Present Illness General Chief Complaint: Abdominal Pain Source: Patient Present Illness HPI Patient is a 69-year-old male who presented after increased lower abdominal pain. Had recent laparoscopic prostate surgery. Had diminished output from his Cuevas catheter. Surgery occurred on Thursday. Dr. Sixto Sims performed the surgery. Patient denies any fever. He denies any vomiting. He reports having a decreased stool output. Denies any lower extremity pain or swelling. Reports having decreased urine output since approximately 4 PM today. Patient presented 6 hours after decreased urine output. Patient had been taking antibiotics as well as having indwelling Cuevas catheter. Allergies: Coded Allergies: No Known Allergies (Unverified , 12/27/19) COVID-19 Screening Contact w/high risk pt: No Recent Travel to affected area: No Experienced COVID-19 symptoms?: No COVID-19 Screening: Negative COVID-19 COVID-19 [place] [facility] [place] Patient History Past Medical History: see triage record Past Surgical History: other - Exploratory laparotomy, prostate surgery Reviewed Nursing Documentation: PMH: Agreed; PSxH: Agreed Nursing Documentation-PMH Hx Cardiac Problems: No Hx Cancer: Yes Hx Gastrointestinal Problems: Yes - HERNIA SX, LAPRASCOPIC PROSTATECTOMY () Hx Neurological Problems: No Review of Systems All Other Systems: negative except mentioned in HPI Physical Exam Vital Signs Date Time Temp Pulse Resp B/P (MAP) Pulse Ox O2 Delivery O2 Flow Rate FiO2 01/02/20 22:18 98.6 108 20 194/111 (138) 98 Room Air Sp02 EP Interpretation: reviewed, normal General Appearance: normal inspection, alert, moderate distress, Chronically Ill Head: atraumatic ENT: normal ENT inspection, hearing grossly normal, normal voice Neck: normal inspection, full range of motion, supple, no bony tend Respiratory: normal inspection, lungs clear, normal breath sounds, no respiratory distress, no retraction, no wheezing Cardiovascular #1: regular rate, rhythm, no edema Gastrointestinal: normal inspection, normal bowel sounds, soft, no guarding, no hernia, other - bruising to lower abdomen, benita intact. Genitourinary: no CVA tenderness Musculoskeletal: normal inspection, back normal, normal range of motion Neurologic: alert, motor strength/tone normal, manager mobility III-XII nml as tested, oriented x3, responsive, speech normal, normal inspection Psychiatric: normal inspection, judgement/insight normal, mood/affect normal Skin: other - right sided bruising Medical Decision Making Diagnostic Impression: Primary Impression: Prostate CA Additional Impressions: Pneumonia Myelodysplasia (myelodysplastic syndrome) ER Course Patient presented for lower abdominal pain. Differential diagnosis include was not limited to urinary tract infection, Cuevas catheter malfunction, peritonitis , among others. Because of complexity of patient's case laboratory tests and imaging studies were ordered.Patient's laboratory testing was notable for markedly elevated white blood count as well as some elevation of the BUN and creatinine. GFR was in the 40s. CT imaging was ordered due to patient's recent surgery and significant lower abdominal tenderness. Urinalysis did show some evidence of urinary bacteria and urinary infection. Patient started on IV fluids. He was given IV morphine for pain. CT imaging showed Cuevas catheter which showed multiple findings including pneumonia as well as some possible retroperitoneal hemorrhage. See radiology report for full details. Dr. Lomeli was contacted for surgical consult. Dr. Cecy Pepper was contacted for [facility] for admission due to request by Dr. Lomeli. Labs Test 01/02/20 22:30 01/02/20 22:35 01/02/20 23:30 White Blood Count 21.5 K/UL (4.8-10.8) Red Blood Count 3.65 M/UL (4.70-6.10) Hemoglobin 10.5 G/DL (14.2-18.0) Hematocrit 30.0 % (42.0-52.0) Mean Corpuscular Volume 82 FL (80-99) Mean Corpuscular Hemoglobin 28.8 PG (27.0-31.0) Mean Corpuscular Hemoglobin Concent 35.0 G/DL (32.0-36.0) Red Cell Distribution Width 15.1 % (11.6-14.8) Platelet Count 464 K/UL (150-450) Mean Platelet Volume 6.5 FL (6.5-10.1) Neutrophils (%) (Auto) % (45.0-75.0) Lymphocytes (%) (Auto) % (20.0-45.0) Monocytes (%) (Auto) % (1.0-10.0) Eosinophils (%) (Auto) % (0.0-3.0) Basophils (%) (Auto) % (0.0-2.0) Differential Total Cells Counted 100 Neutrophils % (Manual) 85 % (45-75) Lymphocytes % (Manual) 8 % (20-45) Monocytes % (Manual) 4 % (1-10) Eosinophils % (Manual) 3 % (0-3) Basophils % (Manual) 0 % (0-2) Band Neutrophils 0 % (0-8) Platelet Estimate Adequate Platelet Morphology Normal Prothrombin Time 13.2 SEC (9.30-11.50) Prothromb Time International Ratio 1.2 (0.9-1.1) Activated Partial Thromboplast Time 35 SEC (23-33) Sodium Level 138 MMOL/L (136-145) Potassium Level 3.3 MMOL/L (3.5-5.1) Chloride Level 100 MMOL/L (98-107) Carbon Dioxide Level 26 MMOL/L (21-32) Anion Gap 12 mmol/L (5-15) Blood Urea Nitrogen 20 mg/dL (7-18) Creatinine 1.5 MG/DL (0.55-1.30) Estimat Glomerular Filtration Rate 46.7 mL/min (>60) Glucose Level 118 MG/DL (74-106) Calcium Level 8.6 MG/DL (8.5-10.1) Total Bilirubin 3.4 MG/DL (0.2-1.0) Direct Bilirubin 0.9 MG/DL (0.0-0.3) Aspartate Amino Transf (AST/SGOT) 25 U/L (15-37) Alanine Aminotransferase (ALT/SGPT) 17 U/L (12-78) Alkaline Phosphatase 92 U/L (46-116) Total Protein 6.7 G/DL (6.4-8.2) Albumin 3.2 G/DL (3.4-5.0) Globulin 3.5 g/dL Albumin/Globulin Ratio 0.9 (1.0-2.7) Lipase 61 U/L (73-393) Urine Color Yellow Urine Appearance Cloudy Urine pH 5 (4.5-8.0) Urine Specific [place] 1.010 (1.005-1.035) Urine Protein 3+ (NEGATIVE) Urine Glucose (UA) Negative (NEGATIVE) Urine Ketones 2+ (NEGATIVE) Urine Blood 2+ (NEGATIVE) Urine Nitrite Negative (NEGATIVE) Urine Bilirubin Negative (NEGATIVE) Urine Urobilinogen 1 MG/DL (0.0-1.0) Urine Leukocyte Esterase 1+ (NEGATIVE) Urine RBC 5-10 /HPF (0 - 0) Urine WBC 2-4 /HPF (0 - 0) Urine Squamous Epithelial Cells None /LPF (NONE/OCC) Urine Amorphous Sediment Many /LPF (NONE) Urine Bacteria Moderate /HPF (NONE) Lactic Acid Level 0.80 mmol/L (0.4-2.0) EKG Diagnostic Results Rate: normal Rhythm: NSR ST Segments: no acute changes Last Vital Signs Date Time Temp Pulse Resp B/P (MAP) Pulse Ox O2 Delivery O2 Flow Rate FiO2 01/02/20 22:18 98.6 108 20 194/111 (138) 98 Room Air Status: unchanged Disposition: ADMITTED INPATIENT Condition: Stable Referrals: NOT CHOSEN IPA/,REFERRING (PCP) Wilmer Collier MD January 02, 2020 22:42
--- NOTE | 2020-01-02 22:45 | NUR ---
ED Nurse Note: Urinary catheter irrigated, output the same as input with sediment and very little urine. Patient reports little relief. Will continue to monitor.
[2020-01-02] MEDS ORDERED: Morphine Sulfate 4mg/ml Inj (IV USE ONLY) IVP ONE (23:00)
--- NOTE | 2020-01-02 23:00 | NUR ---
ED Nurse Note: Patient tolerated pain medication well and reports pain relief after one admin. Will continue to monitor.
[2020-01-02 23:08] LABS: HEMOGLOBIN 10.5 G/DL (14.2-18.0); MEAN CORPUSCULAR VOLUME 82 FL (80-99); PLATELET COUNT 464 K/UL (150-450); RED BLOOD COUNT 3.65 M/UL (4.70-6.10); RED CELL DISTRIBUTION WIDTH 15.1 % (11.6-14.8); WHITE BLOOD COUNT 21.5 K/UL (4.8-10.8)
[2020-01-02 23:11] LABS: APPEARANCE,URINE CLOUDY; BILIRUBIN, URINE NEGATIVE (NEGATIVE); GLUCOSE, URINE (UA) NEGATIVE (NEGATIVE); KETONES,URINE 2+ (NEGATIVE); NITRITE,URINE NEGATIVE (NEGATIVE); PH,URINE 5 (4.5-8.0); PROTEIN,URINE 3+ (NEGATIVE); UROBILINOGEN,URINE 1 MG/DL (0.0-1.0)
[2020-01-02 23:22] LABS: ANION GAP 12 mmol/L (5-15); BLOOD UREA NITROGEN 20 mg/dL (7-18); CALCIUM 8.6 MG/DL (8.5-10.1); CARBON DIOXIDE 26 MMOL/L (21-32); CHLORIDE 100 MMOL/L (98-107); CREATININE 1.5 MG/DL (0.55-1.30); INR 1.2 (0.9-1.1); POTASSIUM 3.3 MMOL/L (3.5-5.1); SODIUM 138 MMOL/L (136-145)
[2020-01-02 23:33] LABS: ALANINE AMINOTRANSFERASE 17 U/L (12-78); ALBUMIN 3.2 G/DL (3.4-5.0); ALBUMIN/GLOBULIN RATIO 0.9 (1.0-2.7); ALKALINE PHOSPHATASE 92 U/L (46-116); ASPARTATE AMINO TRANSFERASE 25 U/L (15-37); BILIRUBIN,TOTAL 3.4 MG/DL (0.2-1.0)
[2020-01-02 23:37] LABS: BILIRUBIN,DIRECT 0.9 MG/DL (0.0-0.3)
[2020-01-02 23:44] LABS: COLOR,URINE YELLOW
[2020-01-02 23:45] LABS: LEUKOCYTE ESTERASE ,URINE 1+ (NEGATIVE)
[2020-01-03] VITALS (7 sets, daily range): BP systolic 151–163; BP diastolic 81–95
--- NOTE | 2020-01-03 00:18 | NUR ---
ED Nurse Note: Patient went down for CT accompanied by robotic weld technician.
--- NOTE | 2020-01-03 00:32 | NUR ---
ED Nurse Note: Patient returned from CT without incident.
[2020-01-03] MEDS ORDERED: Morphine Sulfate 4mg/ml Inj (IV USE ONLY) IVP ONE ×2 (01:30→02:00)
--- NOTE | 2020-01-03 01:32 | NUR ---
ED Nurse Note: Patient resting comfortably with no s/s of acute distress. Will continue to monitor for pain or other needs.
[2020-01-03] MEDS ORDERED: cefTRIAXone 1 GM in NS 55 ML IVPB ONE (02:00)
[2020-01-03] MEDS ORDERED: Vancomycin 1.5 GM in NS 275 ML IVPB ONE (02:00)
[2020-01-03] MEDS ORDERED: Omnipaque-300 100ml vial INJ PRN (02:15)
--- NOTE | 2020-01-03 02:15 | Diagnostic Imaging Report ---
EXAM: CT Abdomen and Pelvis Without Intravenous Contrast CLINICAL HISTORY: PAIN TECHNIQUE: Axial computed tomography images of the abdomen and pelvis without intravenous contrast. CTDI is 9 mGy and DLP is 556 mGy-cm. One or more of the following dose reduction techniques were used: automated exposure control, adjustment of the mA and/or kV according to patient size, use of iterative reconstruction technique. COMPARISON: No relevant prior studies available. FINDINGS: Artifacts: Motion degraded study. Lung bases: Multifocal airspace disease bilateral lower lobes with nodularity in both lower lobes likely a combination of atelectasis and pneumonia. Parenchymal solid nodules in the lung bases cannot be excluded. Small bilateral pleural fluid collections. Mild cardiomegaly and trace pericardial effusion. ABDOMEN: Liver: No focal mass. Gallbladder and bile ducts: Unremarkable. No calcified stones. No ductal dilation. Pancreas: Unremarkable. No ductal dilation. Spleen: Marked splenomegaly with the spleen measuring approximately 18 x 9 cm. Adrenals: Unremarkable. No mass. Kidneys and ureters: Unremarkable. No obstructing stones. No hydronephrosis. Stomach and bowel: Negative for pneumatosis. Negative for lower GI tract obstruction. PELVIS: Appendix: The appendix was not visualized. Bladder: Cuevas catheter present in the bladder which is partially decompressed and contains iatrogenic nondependent gas. A portion of the left bladder herniates into the left inguinal canal. Reproductive: The prostate gland is significantly heterogeneous and contains irregular fluid within and adjacent to the gland. Heterogeneous hyperattenuating material in varying attenuation fluid in the prostate bed. Findings in this patient including this finding was discussed with the referring physician. My recommendation was to hydrate patient and follow-up with a contrast-enhanced study. ABDOMEN and PELVIS: Intraperitoneal and extraperitoneal space: Moderate amount of fluid in the abdomen including perihepatic and perisplenic fluid fluid is intermediate to high attenuation and likely contains blood products. There is also a moderate amount of fluid in the central abdomen as well as the dependent pelvis. Fluid in the med/central mesentery is fairly low attenuation. There is hyper attenuating fluid in the retroperitoneum bilaterally beginning near the proximal portions of the posterior pararenal spaces and extending into the pelvis. Findings are consistent with bilateral extraperitoneal hemorrhage. Multilocular fluid collections in the inferior abdomen and pelvis, some of which are difficult to differentiate from adjacent unopacified bowel. Partially loculated peritoneal fluid collections in the inferior abdomen and pelvis. There is a combination of peritoneal and moderate collections of extraperitoneal fluid/blood products anterior to the bladder. Bones/joints: No acute fracture. No dislocation. Soft tissues: Tiny focus of pneumoperitoneum deep to the periumbilical region that may be residual postoperative gas. Infraumbilical skin benita. There are soft tissue benita in the left and right lower quadrants likely ports for laparoscopic procedure. Stranding and reticulation in the anterior abdominal and pelvic cedillo suggest either soft tissue edema from recent procedure or cellulitis. Vasculature: Unremarkable. No abdominal aortic aneurysm. Lymph nodes: Unremarkable. No enlarged lymph nodes. IMPRESSION: Patient is status post a recent laparoscopic prostatectomy. Significant irregularity in the prostate bed as well as intra-and extraperitoneal fluid in the abdomen and pelvis. Recent or active hemorrhage cannot be excluded. Recommendation is for patient hydration and follow-up with a contrast-enhanced study. Some of the lower abdominal and pelvic peritoneal fluid is partially loculated. Developing abscesses cannot be excluded. Irregular airspace disease and nodularity in both lower lobes likely combination of atelectasis and probable pneumonia. The areas of nodularity are indeterminate and short-term interval follow-up is recommended. Additional nonemergent findings above.
--- NOTE | 2020-01-03 02:30 | NUR ---
ED Nurse Note: MRSA, VRE, CRE SWAB COLLECTED AND SENT TO LAB
--- NOTE | 2020-01-03 02:30 | NUR ---
ED Nurse Note: Patient provided with incentive spirometer, and instructed on use 10 x per hour. Will continue to monitor for deep breathing exercise.
[2020-01-03] MEDS ORDERED: Piperacillin/Tazobactam 3.375 GM in NS 110 ML IVPB ONE (02:45)
--- NOTE | 2020-01-03 03:39 | NUR ---
ED Nurse Note: Patient is resting comfortably still receiving vanco at recommended rate. Unable to start third anitbiotic until vanco is done. Will continue to monitor.
--- NOTE | 2020-01-03 03:49 | NUR ---
ED Nurse Note: Patient was 90% on room Air, 2L O2 via nasal canula support given, ERMD informed.
--- NOTE | 2020-01-03 04:38 | NUR ---
ED Nurse Note: Third antibiotic hung, will continue to monitor. Patient reports pain 7/10, will consult orders.
--- NOTE | 2020-01-03 05:17 | NUR ---
ED Nurse Note: Patient using incentive spirometer properly and often. Will continue to monitor.
[2020-01-03] MEDS ORDERED: Hydromorphone 0.5mg/0.5ml inj IVP PRN (05:45)
[2020-01-03] MEDS ORDERED: D5NS 1,000 ML IV SCH (06:41)
--- NOTE | 2020-01-03 06:45 | NUR ---
NURSE NOTES: Patient arrived the unit at 0645. Patient is a/ox4. C/O PAIN 10/17 AND will give medication as ordered. IV is intact and patient. Surgical site on abdomen is c/d/i. Bruises on lower abdomen. Belonging checked with patient and signed by patient. Cuevas is in place and draining to gravity. just emptied 350ml. Bed is on alarm, locked, and lowest position. Call light within reach. Will continue to monitor.
--- NOTE | 2020-01-03 07:40 | NUR ---
NURSE NOTES: WALKING ROUNDS DONE WITH NIGHT RN. PATIENT AWAKE IN BED. DENIES PAIN. QUESTIONS ANSWERED, NEEDS MET. DISCUSSED PLAN OF CARE FOR THE DAY. VERBALIZED UNDERSTANDING. BED IN LOW AND LOCKED POSITION. CALL LIGTH WITHIN REACH.
--- NOTE | 2020-01-03 08:14 | NUR ---
HAND-OFF: Report given to Dahiana DOAN Patient in stable condition..
[2020-01-03 08:23] LABS: HEMATOCRIT 27.7 % (42.0-52.0); HEMOGLOBIN 9.8 G/DL (14.2-18.0); MEAN CORPUSCULAR VOLUME 82 FL (80-99); PLATELET COUNT 405 K/UL (150-450); RED BLOOD COUNT 3.37 M/UL (4.70-6.10); RED CELL DISTRIBUTION WIDTH 14.8 % (11.6-14.8); WHITE BLOOD COUNT 19.9 K/UL (4.8-10.8)
[2020-01-03 08:40] LABS: ANION GAP 10 mmol/L (5-15); BLOOD UREA NITROGEN 20 mg/dL (7-18); CALCIUM 7.9 MG/DL (8.5-10.1); CARBON DIOXIDE 26 MMOL/L (21-32); CHLORIDE 104 MMOL/L (98-107); CREATININE 1.4 MG/DL (0.55-1.30); POTASSIUM 3.1 MMOL/L (3.5-5.1); SODIUM 140 MMOL/L (136-145)
[2020-01-03] MEDS: Piperacillin/Tazobactam 3.375 GM in NS 110 ML IVPB SCH ×2 (09:30→17:33)
--- NOTE | 2020-01-03 09:34 | NUR ---
NURSE NOTES: Spoke to regarding CT abd pelv w/ contrast procedure and hold CT scan for now. Order noted and carried out.
[2020-01-03] MEDS ORDERED: HYDROcodone/Acetamin 5/325 tab ORAL PRN (10:15)
--- NOTE | 2020-01-03 10:20 | NUR ---
NURSE NOTES: Spoke to regarding patient and new order received. Order read back and carried out.
--- NOTE | 2020-01-03 10:55 | History & Physical ---
History and Physical History & Physicial History and Physical Dictated Scottie Mcconnell MD January 03, 2020 10:55
[2020-01-03] MEDS: Docusate 100mg cap ORAL SCH ×2 (11:24→17:33)
--- NOTE | 2020-01-03 13:01 | NUR ---
*-* INSURANCE *-* ALL AVAILABLE CLINICALS HAVE BEEN FAXED TO: KIMMY # [phone] F: [phone] Addendum: 01/03/20 at 1607 by JETT MONROE CM Kimmy Ref#[id number] #[phone] FAX#[phone]
[2020-01-03] MEDS: D5NS w/KCl 40mEq 1000ml 1,000 ML IV SCH (13:35)
--- NOTE | 2020-01-03 14:24 | NUR ---
CASE MANAGEMENT: INITIAL REVIEW 69YR OLD MALE FROM HOME CC: LOWER ABD PAIN FROM SURGICAL SITE; NOT PRODUCING URINE SI:PROSTATE CANCER . MYELODYSPLASIA . PNA 98.6 93 30 163/81 90% ON RA WBC 21.5 PLT 464 PT 13.2 INR 1.2 PTT 35 IS:IV MORPHINE SULFATE X2 IVF NS BOLUS X1 CT Abdomen Pelvis WO Contrast-Recent or active hemorrhage cannot be excluded. \:3E MED SURG UNIT DCP: HOME WHEN STABLE PLAN: LOW SAT- OXYGEN THERAPY CASE MANAGEMENT: REVIEW 01/03/20 SI:PROSTATE CANCER . MYELODYSPLASIA . PNA 98.2 85 18 151/89 98% ON 2L WBC 19.9 H/H 9.8/27.7 K+ 3.1 BUN/CREAT 20/1.4 CA+ 7.9 IS:IV D5@50ML/HR IV ZOSYN TID COLACE PO BID \:3E MED SURG UNIT DCP: HOME WHEN STABLE PLAN: IRRIGATE F/C
--- NOTE | 2020-01-03 14:28 | Consultation ---
History of Present Illness General Date patient seen: January 03, 2020 Reason for Hospitalization: Abdominal Pain Present Illness HPI This is a 69-year-old male known to me from recent surgery postop care provided patient with abdominal pain distention which did resolve prior to discharge and had been improved and stabilized. He was home doing well for the past 1 to 2 days post discharge but began to have acute onset of urinary retention decreased urine output pain with Cuevas in place felt uncomfortable and abdominal discomfort and therefore came to emergency room for evaluation. Noted to have significant leukocytosis and CT as below. Surgery called to evaluate and assist with care. Patient seen, patient evaluated, chart reviewed Allergies: Coded Allergies: No Known Allergies (Unverified , 12/27/19) COVID-19 Screening Contact w/high risk pt: No Recent Travel to affected area: No Experienced COVID-19 symptoms?: No Medication History Scheduled Docusate Sodium* (Colace*), 100 MG ORAL TWICE A DAY Levofloxacin* (Levaquin*), 500 MG ORAL DAILY Multivitamins* (Multivitamins*), 1 TAB ORAL DAILY, (Reported) [vit c], 500 MG PO DAILY, (Reported) Scheduled PRN Hydrocodone Bit/Acetaminophen 5-325* ([place] 5-325 Tablet*), 1 TAB ORAL Q4H PRN Patient History History Provided By: Patient, Medical Record, PMD Healthcare decision maker Resuscitation status Advanced Directive on File Past Medical/Surgical History Past Medical/Surgical History: (1) Pneumonia (2) Prostate CA (3) Myelodysplasia (myelodysplastic syndrome) (4) Postoperative abdominal pain Review of Systems Review of Symptoms General ROS: no weight loss or fever Psychological ROS: no depression or mood changes, no memory loss Ophthalmic ROS: no visual changes or eye irritation ENT ROS: no nasal congestion, hearing loss, dizziness Allergy and Immunology ROS: no allergic symptoms or urticaria Hematological and Lymphatic ROS: no swollen glands, unusual bleeding or bruising Endocrine ROS: no polyuria, polydipsia, weight changes, temperature intolerance Respiratory ROS: no cough, shortness of breath, or wheezing Cardiovascular ROS: no chest pain or dyspnea on exertion Gastrointestinal ROS: ++ abdominal pain, bright red blood in stool. Musculoskeletal ROS: no myalgias or arthralgias Neurological ROS: no TIA or stroke symptoms Dermatological ROS: no new or changing skin lesions, rashes or pruritis Physical Exam Physical Exam General appearance: alert, cooperative, no distress, appears stated age Head: Normocephalic, without obvious abnormality, atraumatic Eyes: conjunctivae/corneas clear. PERRL, EOM's intact. Fundi benign Throat: Lips, mucosa, and tongue normal. Teeth and gums normal Neck: supple, symmetrical, trachea midline, no adenopathy, thyroid: not enlarged, symmetric, no tenderness/mass/nodules, no carotid bruit and no JVD Lungs: clear to auscultation bilaterally Heart: regular rate and rhythm, S1, S2 normal, no murmur, click, rub or gallop Abdomen: soft, mild-tender. distended bruising Bowel sounds normal. No masses, no organomegaly Extremities: extremities normal, atraumatic, no cyanosis or edema Pulses: 2+ and symmetric Skin: Skin color, texture, turgor normal. No rashes or lesions Neurologic: Grossly normal Last 24 Hour Vital Signs Date Time Temp Pulse Resp B/P (MAP) Pulse Ox O2 Delivery O2 Flow Rate FiO2 01/03/20 11:53 98.2 85 18 151/89 (109) 98 01/03/20 08:16 Nasal Cannula 2.0 01/03/20 08:00 98.0 89 20 158/94 (115) 98 01/03/20 05:33 98.6 90 22 161/86 96 Nasal Cannula 2.0 01/03/20 04:30 98.6 90 27 158/88 96 Nasal Cannula 2.0 01/03/20 03:49 94 Nasal Cannula 2.0 01/03/20 03:44 98.6 93 30 163/81 90 Room Air 01/03/20 02:34 98.6 01/03/20 01:52 98.6 01/02/20 23:23 98.6 01/02/20 22:18 98.6 108 20 194/111 98 Room Air 01/02/20 22:18 98.6 108 20 194/111 (138) 98 Room Air 01/02/20 22:18 108 20 Room Air Intake and Output 01/02/20 01/03/20 19:00 07:00 Intake Total 1000 ml Output Total 400 ml Balance 600 ml Intake Oral 0 ml IV Total 1000 ml Output Urine Total 400 ml Laboratory Tests Test 01/02/20 22:30 01/02/20 22:35 01/02/20 23:30 01/03/20 07:05 White Blood Count 21.5 K/UL (4.8-10.8) H 19.9 K/UL (4.8-10.8) H Red Blood Count 3.65 M/UL (4.70-6.10) L 3.37 M/UL (4.70-6.10) L Hemoglobin 10.5 G/DL (14.2-18.0) L 9.8 G/DL (14.2-18.0) L Hematocrit 30.0 % (42.0-52.0) L 27.7 % (42.0-52.0) L Mean Corpuscular Volume 82 FL (80-99) 82 FL (80-99) Mean Corpuscular Hemoglobin 28.8 PG (27.0-31.0) 29.0 PG (27.0-31.0) Mean Corpuscular Hemoglobin Concent 35.0 G/DL (32.0-36.0) 35.2 G/DL (32.0-36.0) Red Cell Distribution Width 15.1 % (11.6-14.8) H 14.8 % (11.6-14.8) Platelet Count 464 K/UL (150-450) H 405 K/UL (150-450) Mean Platelet Volume 6.5 FL (6.5-10.1) 6.3 FL (6.5-10.1) L Neutrophils (%) (Auto) % (45.0-75.0) % (45.0-75.0) Lymphocytes (%) (Auto) % (20.0-45.0) % (20.0-45.0) Monocytes (%) (Auto) % (1.0-10.0) % (1.0-10.0) Eosinophils (%) (Auto) % (0.0-3.0) % (0.0-3.0) Basophils (%) (Auto) % (0.0-2.0) % (0.0-2.0) Differential Total Cells Counted 100 100 Neutrophils % (Manual) 85 % (45-75) H 89 % (45-75) H Lymphocytes % (Manual) 8 % (20-45) L 6 % (20-45) L Monocytes % (Manual) 4 % (1-10) 2 % (1-10) Eosinophils % (Manual) 3 % (0-3) 3 % (0-3) Basophils % (Manual) 0 % (0-2) 0 % (0-2) Band Neutrophils 0 % (0-8) 0 % (0-8) Platelet Estimate Adequate Adequate Platelet Morphology Normal Normal Prothrombin Time 13.2 SEC (9.30-11.50) H Prothromb Time International Ratio 1.2 (0.9-1.1) H Activated Partial Thromboplast Time 35 SEC (23-33) H Sodium Level 138 MMOL/L (136-145) 140 MMOL/L (136-145) Potassium Level 3.3 MMOL/L (3.5-5.1) L 3.1 MMOL/L (3.5-5.1) L Chloride Level 100 MMOL/L (98-107) 104 MMOL/L (98-107) Carbon Dioxide Level 26 MMOL/L (21-32) 26 MMOL/L (21-32) Anion Gap 12 mmol/L (5-15) 10 mmol/L (5-15) Blood Urea Nitrogen 20 mg/dL (7-18) H 20 mg/dL (7-18) H Creatinine 1.5 MG/DL (0.55-1.30) H 1.4 MG/DL (0.55-1.30) H Estimat Glomerular Filtration Rate 46.7 mL/min (>60) 50.5 mL/min (>60) Glucose Level 118 MG/DL (74-106) H 98 MG/DL (74-106) Calcium Level 8.6 MG/DL (8.5-10.1) 7.9 MG/DL (8.5-10.1) L Total Bilirubin 3.4 MG/DL (0.2-1.0) H Direct Bilirubin 0.9 MG/DL (0.0-0.3) H Aspartate Amino Transf (AST/SGOT) 25 U/L (15-37) Alanine Aminotransferase (ALT/SGPT) 17 U/L (12-78) Alkaline Phosphatase 92 U/L (46-116) Total Protein 6.7 G/DL (6.4-8.2) Albumin 3.2 G/DL (3.4-5.0) L Globulin 3.5 g/dL Albumin/Globulin Ratio 0.9 (1.0-2.7) L Lipase 61 U/L (73-393) L Urine Color Yellow Urine Appearance Cloudy Urine pH 5 (4.5-8.0) Urine Specific [place] 1.010 (1.005-1.035) Urine Protein 3+ (NEGATIVE) H Urine Glucose (UA) Negative (NEGATIVE) Urine Ketones 2+ (NEGATIVE) H Urine Blood 2+ (NEGATIVE) H Urine Nitrite Negative (NEGATIVE) Urine Bilirubin Negative (NEGATIVE) Urine Urobilinogen 1 MG/DL (0.0-1.0) H Urine Leukocyte Esterase 1+ (NEGATIVE) H Urine RBC 5-10 /HPF (0 - 0) H Urine WBC 2-4 /HPF (0 - 0) Urine Squamous Epithelial Cells None /LPF (NONE/OCC) Urine Amorphous Sediment Many /LPF (NONE) H Urine Bacteria Moderate /HPF (NONE) H Lactic Acid Level 0.80 mmol/L (0.4-2.0) Polychromasia 2+ Hypochromasia 1+ Anisocytosis 1+ Height (Feet): 5 Height (Inches): 8.00 Weight (Pounds): 184 Medications Current Medications Medications (Trade) Dose Ordered Sig/Juan Carlos Route PRN Reason Start Time Stop Time Status Last Admin Dose Admin Acetaminophen (Tylenol) 650 mg Q4H PRN ORAL Temp >100.5 01/03/20 05:45 02/02/20 05:44 Acetaminophen/ Hydrocodone Bitart ([place] 5/325) 1 tab Q4H PRN ORAL Mild Pain (Pain Scale 1-3) 01/03/20 10:15 01/10/20 10:14 Dextrose (Dextrose 50%) 25 ml Q30M PRN IV Hypoglycemia 01/03/20 05:45 04/02/20 05:44 Dextrose (Dextrose 50%) 50 ml Q30M PRN IV Hypoglycemia 01/03/20 05:45 04/02/20 05:44 Dextrose/ Electrolytes 1,000 ml @ 50 mls/hr Q20H IV 01/03/20 13:00 02/02/20 12:59 01/03/20 13:35 Docusate Sodium (Colace) 100 mg TWICE A DAY ORAL 01/03/20 10:30 02/02/20 10:29 01/03/20 11:24 Hydromorphone HCl (Dilaudid) 0.5 mg Q3H PRN IVP Moderate Pain (Pain Scale 4-6) 01/03/20 11:45 01/10/20 05:44 Hydromorphone HCl (Dilaudid) 1 mg Q3H PRN IVP Severe Pain (Pain Scale 7-10) 01/03/20 05:45 01/10/20 05:44 Ondansetron HCl (Zofran) 4 mg Q6H PRN IVP Nausea & Vomiting 01/03/20 05:45 02/02/20 05:44 Piperacillin Sod/ Tazobactam Sod 3.375 gm/Sodium Chloride 110 ml @ 27.5 mls/hr Q8H IVPB 01/03/20 09:00 01/10/20 08:59 01/03/20 09:30 Assessment/Plan Problem List: (1) Postoperative abdominal pain Assessment & Plan: 69-year-old male status post lap prostate recovered discharged safely initially had some vomiting discomfort but recovered from that in the patient postoperatively and discharged in stable condition now presents with decreased urine output abdominal pain distention and discomfort. 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 No nausea vomiting currently. States felt a little nausea prior. Has not had a significant bowel movement past 2 days. Is taking narcotic pain medication as necessary. CT reviewed. Seemingly patient had a hemorrhagic event postoperatively but is now stable. CT noted introduction peritoneal fluid extramarital fluid collection notes bruising underneath the epidermis likely from hematoma formation which could be anticipated given the recent surgery. The abdominal discomfort could be likely ileus from recent surgery and some hemoperitoneum. No active bleeding identified patient hemodynamically otherwise fairly stable. Do recommend patient be admitted and monitored closely. Okay for liquid diet. Ambulate out of bed Cuevas to stay in place antibiotics will monitor with serial abdominal examinations. Trend hemoglobin. Thank you for let me participate in patient's care will follow with recommendations Intraperitoneal and extraperitoneal space: Moderate amount of fluid in the abdomen including perihepatic and perisplenic fluid fluid is intermediate to high attenuation and likely contains blood products. There is also a moderate amount of fluid in the central abdomen as well as the dependent pelvis. Fluid in the med/central mesentery is fairly low attenuation. There is hyper attenuating fluid in the retroperitoneum bilaterally beginning near the proximal portions of the posterior pararenal spaces and extending into the pelvis. Findings are consistent with bilateral extraperitoneal hemorrhage. Multilocular fluid collections in the inferior abdomen and pelvis, some of which are difficult to differentiate from adjacent unopacified bowel. Partially loculated peritoneal fluid collections in the inferior abdomen and pelvis. There is a combination of peritoneal and moderate collections of extraperitoneal fluid/blood products anterior to the bladder. Bones/joints: No acute fracture. No dislocation. Soft tissues: Tiny focus of pneumoperitoneum deep to the periumbilical region that may be residual postoperative gas. Infraumbilical skin benita. There are soft tissue benita in the left and right lower quadrants likely ports for laparoscopic procedure. Stranding and reticulation in the anterior abdominal and pelvic cedillo suggest either soft tissue edema from recent procedure or cellulitis. Vasculature: Unremarkable. No abdominal aortic aneurysm. Lymph nodes: Unremarkable. No enlarged lymph nodes. IMPRESSION: Patient is status post a recent laparoscopic prostatectomy. Significant irregularity in the prostate bed as well as intra-and extraperitoneal fluid in the abdomen and pelvis. Recent or active hemorrhage cannot be excluded. Recommendation is for patient hydration and follow-up with a contrast-enhanced study. Some of the lower abdominal and pelvic peritoneal fluid is partially loculated. Developing abscesses cannot be excluded. Irregular airspace disease and nodularity in both lower lobes likely combination of atelectasis and probable pneumonia. The areas of nodularity are indeterminate and short-term interval follow-up is recommended. Additional nonemergent findings above. ICD Codes: R10.9 - Unspecified abdominal pain; G89.18 - Other acute postprocedural pain SNOMED: [id number], [id number] Thomas Lomeli January 03, 2020 14:28
--- NOTE | 2020-01-03 16:32 | NUR ---
NURSE NOTES: PATIENT REMAINS STABLE. VSS. AFEBRILE. SPO2 97% ROOM AIR. NO SOB NOTED. C/O RLQ DULL PAIN. IV PAIN MED DECREASED PAIN SIGNIFICANTLY. BENOIT CATHETER PATENT AND FLUSHED WITH 50 CC NS Q6H PER MD ORDER. TOLERATED WELL. OUTPUT DARK LESLI. NO SEDIMENTS OR CLOTS PRESENT. UP AMBULATING AROUND UNIT. GAIT STEADY.
--- NOTE | 2020-01-03 19:16 | NUR ---
HAND-OFF: Report given to MARIVEL TIJERINA RN.
--- NOTE | 2020-01-03 19:30 | NUR ---
NURSE NOTES: Receive a report from FRANKI Talbot. Round is done. Pt is awake and alert. No acute distress noted. Urine with sediments and blood clots is patent via goldsmith catheter. On flushing NS 50ml 4 times a day. Abdominal pain is tolerating at this time. Pt is ambulating the unit. Given fall precautions. Will continue to monitor.
--- NOTE | 2020-01-03 20:00 | History and Physical Report ---
DATE OF ADMISSION: 01/03/2020 HISTORY OF PRESENT ILLNESS: This is a 69-year-old who was discharged from the hospital recently after open bursectomy. The procedure was prolonged and complicated, but the patient had an excellent outcome and was discharged home a few days ago with a Cuevas catheter in place. He was also asked to stay on Levaquin and Sloan. He returned yesterday saying decreased urine output. He also had abdominal distention and pain. His Cuevas was flushed with increased urine output. Currently, he is feeling better. PAST MEDICAL HISTORY: Prostate surgery, prostate CA. HOME MEDICATIONS: Otherwise none. REVIEW OF SYSTEMS: Denies any headaches, hematemesis, melena, hematochezia, or weight loss. PHYSICAL EXAMINATION: VITAL BLOOD: Blood pressure 150/80, heart rate 85, respirations 18, afebrile. GENERAL: Reveals a 69-year-old male. HEENT: Unremarkable. LUNGS: Clear breath sounds bilaterally. ABDOMEN: Soft. EXTREMITIES: There is no edema. NEUROLOGICAL: Nonfocal. LABORATORY DATA: Lab testing shows white count 19.9, hemoglobin 9.8, otherwise normal CBC and BMP. Potassium 3.1, creatinine 1.4. IMPRESSION: 1. Myelodysplasia with persistent leukocytosis. 2. Hypokalemia. 3. Renal dysfunction. 4. Urinary retention. DISCUSSION: Cuevas has been flushed. We will initiate irrigation of Cuevas. Continue antibiotics, oxygen, pulmonary hygiene, and pain control. We will follow. Discussed with Dr. Sims. Scottie Mcconnell M.D. DR: Ilya JOB#: [id number] CC:
[2020-01-03] MEDS ORDERED: NS 275ml ONE (20:13)
[2020-01-03] MEDS ORDERED: Tubing IV Secondary IV ONE (20:13)
[2020-01-03] MEDS ORDERED: NS Irrig 1000ml ONE (20:13)
[2020-01-03] MEDS: Hydromorphone 0.5mg/0.5ml inj IVP PRN (21:53)
[2020-01-04] VITALS (7 sets, daily range): BP systolic 128–160; BP diastolic 71–91
[2020-01-04] MEDS: Piperacillin/Tazobactam 3.375 GM in NS 110 ML IVPB SCH ×3 (00:55→17:02)
--- NOTE | 2020-01-04 01:00 | NUR ---
NURSE NOTES: Sputum specimen got collected. No chilling or febrile sensation. Encourage IS every hour while awake. Pt demonstrates how to use it. Pt used bathroom but did not have BM except passing gas. While using bathroom, noted leaking urine mixed with blood around goldsmith catheter. Done flushing NS 50ml and returned urine out without blockage. Fasten goldsmith catheter with silk tape. Will continue to monitor.
[2020-01-04] MEDS: Hydromorphone 0.5mg/0.5ml inj IVP PRN (01:16)
[2020-01-04] MEDS ORDERED: Vancomycin 1.5gm/NS Premix q24h IVPB SCH (02:00)
--- NOTE | 2020-01-04 06:00 | NUR ---
NURSE NOTES: Pain is tolerating. Total urine out: 590ml. Will continue to monitor.
[2020-01-04 06:59] LABS: MEAN CORPUSCULAR VOLUME 83 FL (80-99); PLATELET COUNT 389 K/UL (150-450); RED BLOOD COUNT 3.14 M/UL (4.70-6.10); RED CELL DISTRIBUTION WIDTH 14.8 % (11.6-14.8); WHITE BLOOD COUNT 18.4 K/UL (4.8-10.8)
[2020-01-04 07:27] LABS: ANION GAP 10 mmol/L (5-15); BLOOD UREA NITROGEN 18 mg/dL (7-18); CARBON DIOXIDE 27 MMOL/L (21-32); CHLORIDE 108 MMOL/L (98-107); POTASSIUM 3.4 MMOL/L (3.5-5.1); SODIUM 144 MMOL/L (136-145)
--- NOTE | 2020-01-04 07:30 | NUR ---
nurse notes received patient in bed, patient awake, alert, oriented x4, no sign of distress, On going IVF ,IV site patent and infusing well, goldsmith cath to gravity, on NPO status ok to have ice chips, encouraged to ambulate and use IS tolerated well, plan of care was discussed verbalized understanding 4P's in progress call light w/n reach shauna pulido
--- NOTE | 2020-01-04 07:30 | NUR ---
HAND-OFF: Report given to FRANKI Yan.
[2020-01-04] MEDS: HYDROmorphone 1mg/ml Carpuject IVP PRN ×4 (08:17→21:55)
[2020-01-04] MEDS: Docusate 100mg cap ORAL SCH ×2 (08:20→17:02)
[2020-01-04] MEDS: D5NS w/KCl 40mEq 1000ml 1,000 ML IV SCH (08:20)
--- NOTE | 2020-01-04 11:17 | Pulmonology Progress Note ---
Subjective Interval Events: Looking better Constitutional: Reports: no symptoms HEENT: Repors: no symptoms Respiratory: Reports: no symptoms Cardiovascular: Reports: no symptoms Gastrointestinal/Abdominal: Reports: no symptoms Allergies: Coded Allergies: No Known Allergies (Unverified , 12/27/19) Objective Last 24 Hour Vital Signs Date Time Temp Pulse Resp B/P (MAP) Pulse Ox O2 Delivery O2 Flow Rate FiO2 01/04/20 08:20 Room Air 01/04/20 08:00 99.4 86 20 160/87 (111) 97 01/04/20 04:50 98.9 82 20 153/84 (107) 95 01/04/20 00:00 99.2 85 20 153/88 (109) 95 01/03/20 21:00 Room Air 01/03/20 20:00 99.1 87 20 152/87 (108) 93 01/03/20 16:00 97.1 89 20 157/95 (115) 97 01/03/20 11:53 98.2 85 18 151/89 (109) 98 Intake and Output 01/03/20 01/04/20 19:00 07:00 Intake Total 575.0 ml 600 ml Output Total 750 ml 590 ml Balance -175.0 ml 10 ml IV Total 575.0 ml 600 ml Output Urine Total 750 ml 590 ml General Appearance: no acute distress HEENT: normocephalic Respiratory: chest wall non-tender Cardiovascular: normal peripheral pulses Abdomen: normal bowel sounds Microbiology Date/Time Source Procedure Growth Status 01/02/20 23:35 Blood Blood Culture - Preliminary NO GROWTH AFTER 24 HOURS Resulted 01/02/20 23:30 Blood Blood Culture - Preliminary NO GROWTH AFTER 24 HOURS Resulted 01/02/20 22:35 Urine,Clean Catch Urine Culture - Preliminary NO GROWTH Resulted Laboratory Tests 01/04/20 05:30: White Blood Count 18.4H, Red Blood Count 3.14L, Hemoglobin 9.0L, Hematocrit 26.0L, Mean Corpuscular Volume 83, Mean Corpuscular Hemoglobin 28.7, Mean Corpuscular Hemoglobin Concent 34.7, Red Cell Distribution Width 14.8, Platelet Count 389, Mean Platelet Volume 6.4L, Neutrophils (%) (Auto) , Lymphocytes (%) ( Auto) , Monocytes (%) (Auto) , Eosinophils (%) (Auto) , Basophils (%) (Auto) , Differential Total Cells Counted 100, Neutrophils % (Manual) 85H, Lymphocytes % (Manual) 5L, Monocytes % (Manual) 5, Eosinophils % (Manual) 5H, Basophils % ( Manual) 0, Band Neutrophils 0, Platelet Estimate Adequate, Platelet Morphology Normal, Polychromasia 1+, Hypochromasia 1+, Anisocytosis 1+, Sodium Level 144, Potassium Level 3.4L, Chloride Level 108H, Carbon Dioxide Level 27, Anion Gap 10 , Blood Urea Nitrogen 18, Creatinine 1.0, Estimat Glomerular Filtration Rate > 60, Glucose Level 115H, Calcium Level 8.0L, Magnesium Level 2.0 Current Medications Medications (Trade) Dose Ordered Sig/Juan Carlos Route PRN Reason Start Time Stop Time Status Last Admin Dose Admin Acetaminophen (Tylenol) 650 mg Q4H PRN ORAL Temp >100.5 01/03/20 05:45 02/02/20 05:44 Acetaminophen/ Hydrocodone Bitart ([place] 5/325) 1 tab Q4H PRN ORAL Mild Pain (Pain Scale 1-3) 01/03/20 10:15 01/10/20 10:14 Dextrose (Dextrose 50%) 25 ml Q30M PRN IV Hypoglycemia 01/03/20 05:45 04/02/20 05:44 Dextrose (Dextrose 50%) 50 ml Q30M PRN IV Hypoglycemia 01/03/20 05:45 04/02/20 05:44 Dextrose/ Electrolytes 1,000 ml @ 50 mls/hr Q20H IV 01/03/20 13:00 02/02/20 12:59 01/04/20 08:20 Docusate Sodium (Colace) 100 mg TWICE A DAY ORAL 01/03/20 10:30 02/02/20 10:29 01/04/20 08:20 Hydromorphone HCl (Dilaudid) 0.5 mg Q3H PRN IVP Moderate Pain (Pain Scale 4-6) 01/03/20 11:45 01/10/20 05:44 01/04/20 01:16 Hydromorphone HCl (Dilaudid) 1 mg Q3H PRN IVP Severe Pain (Pain Scale 7-10) 01/03/20 05:45 01/10/20 05:44 01/04/20 08:17 Ondansetron HCl (Zofran) 4 mg Q6H PRN IVP Nausea & Vomiting 01/03/20 05:45 02/02/20 05:44 Piperacillin Sod/ Tazobactam Sod 3.375 gm/Sodium Chloride 110 ml @ 27.5 mls/hr Q8H IVPB 01/03/20 09:00 01/10/20 08:59 01/04/20 08:22 Assessment/Plan Assessment/Plan IMPRESSION: 1. Myelodysplasia with persistent leukocytosis. 2. Hypokalemia. Corrected 3. Renal dysfunction. 4. Urinary retention. Goldsmith in place DISCUSSION: Goldsmith has been flushed. Continue irrigation of Goldsmith. Continue antibiotics, oxygen, pulmonary hygiene, and pain control. Noted leakage around goldsmith. Discussed with Dr. Sims. Labs OK Carlos So Omar Syed MD January 04, 2020 11:17
--- NOTE | 2020-01-04 12:18 | NUR ---
CASE MANAGEMENT: REVIEW 01/04/20 SI:PROSTATE CANCER . MYELODYSPLASIA . PNA 98.7 89 18 140/80 97% ON RA WBC 18.4 H/H 9.0/26 K+ 3.4 CA+ 8 IS:IV D5@50ML/HR IV ZOSYN TID COLACE PO BID IV DILAUDID Q3HE/PRN \:3E MED SURG UNIT DCP: HOME WHEN STABLE PLAN: CONT TO IRRIGATE F/C BENOIT LEAKING
--- NOTE | 2020-01-04 13:00 | NUR ---
nurse notes started on clear liguid diet tolerated well
--- NOTE | 2020-01-04 14:52 | NUR ---
*-* INSURANCE *-* ALL AVAILABLE CLINICALS HAVE BEEN FAXED TO: [facility] Ref#[id number] PH#[phone] FAX#[phone]
--- NOTE | 2020-01-04 17:36 | Surgery Progress Note ---
Surgery Progress Note Subjective Additional Comments Leukocytosis improving. States he feels better. No nausea vomiting no fever chills very hungry passing flatus start clear liquid diet mild blood noted around Cuevas Cuevas urine yessi Objective Last 24 Hour Vital Signs Date Time Temp Pulse Resp B/P (MAP) Pulse Ox O2 Delivery O2 Flow Rate FiO2 01/04/20 15:58 98.4 93 18 150/91 (110) 97 01/04/20 11:52 98.7 89 18 140/80 (100) 97 01/04/20 09:00 154/71 (98) 01/04/20 08:20 Room Air 01/04/20 08:00 99.4 86 20 160/87 (111) 97 01/04/20 04:50 98.9 82 20 153/84 (107) 95 01/04/20 00:00 99.2 85 20 153/88 (109) 95 01/03/20 21:00 Room Air 01/03/20 20:00 99.1 87 20 152/87 (108) 93 I&O Intake and Output 01/03/20 01/04/20 19:00 07:00 Intake Total 575.0 ml 600 ml Output Total 750 ml 590 ml Balance -175.0 ml 10 ml IV Total 575.0 ml 600 ml Output Urine Total 750 ml 590 ml Dressing: dry Wound: clean Drains: other Cardiovascular: RSR Respiratory: clear Abdomen: soft, distended, non-tender, present bowel sounds Extremities: no edema, no tenderness, no cyanosis Laboratory Tests Test 01/04/20 05:30 White Blood Count 18.4 K/UL (4.8-10.8) H Red Blood Count 3.14 M/UL (4.70-6.10) L Hemoglobin 9.0 G/DL (14.2-18.0) L Hematocrit 26.0 % (42.0-52.0) L Mean Corpuscular Volume 83 FL (80-99) Mean Corpuscular Hemoglobin 28.7 PG (27.0-31.0) Mean Corpuscular Hemoglobin Concent 34.7 G/DL (32.0-36.0) Red Cell Distribution Width 14.8 % (11.6-14.8) Platelet Count 389 K/UL (150-450) Mean Platelet Volume 6.4 FL (6.5-10.1) L Neutrophils (%) (Auto) % (45.0-75.0) Lymphocytes (%) (Auto) % (20.0-45.0) Monocytes (%) (Auto) % (1.0-10.0) Eosinophils (%) (Auto) % (0.0-3.0) Basophils (%) (Auto) % (0.0-2.0) Differential Total Cells Counted 100 Neutrophils % (Manual) 85 % (45-75) H Lymphocytes % (Manual) 5 % (20-45) L Monocytes % (Manual) 5 % (1-10) Eosinophils % (Manual) 5 % (0-3) H Basophils % (Manual) 0 % (0-2) Band Neutrophils 0 % (0-8) Platelet Estimate Adequate Platelet Morphology Normal Polychromasia 1+ Hypochromasia 1+ Anisocytosis 1+ Sodium Level 144 MMOL/L (136-145) Potassium Level 3.4 MMOL/L (3.5-5.1) L Chloride Level 108 MMOL/L (98-107) H Carbon Dioxide Level 27 MMOL/L (21-32) Anion Gap 10 mmol/L (5-15) Blood Urea Nitrogen 18 mg/dL (7-18) Creatinine 1.0 MG/DL (0.55-1.30) Estimat Glomerular Filtration Rate > 60 mL/min (>60) Glucose Level 115 MG/DL (74-106) H Calcium Level 8.0 MG/DL (8.5-10.1) L Magnesium Level 2.0 MG/DL (1.8-2.4) Plan Problems: (1) Postoperative abdominal pain Assessment & Plan: 69-year-old male status post lap prostate recovered discharged safely initially had some vomiting discomfort but recovered from that in the patient postoperatively and discharged in stable condition now presents with decreased urine output abdominal pain distention and discomfort. 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 No nausea vomiting currently. States felt a little nausea prior. Has not had a significant bowel movement past 2 days. Is taking narcotic pain medication as necessary. CT reviewed. Seemingly patient had a hemorrhagic event postoperatively but is now stable. CT noted introduction peritoneal fluid extramarital fluid collection notes bruising underneath the epidermis likely from hematoma formation which could be anticipated given the recent surgery. The abdominal discomfort could be likely ileus from recent surgery and some hemoperitoneum. No active bleeding identified patient hemodynamically otherwise fairly stable. Do recommend patient be admitted and monitored closely. Okay for liquid diet. Ambulate out of bed Cuevas to stay in place antibiotics will monitor with serial abdominal examinations. Trend hemoglobin. Thank you for let me participate in patient's care will follow with recommendations Tolerating clear liquid diet now Labs improving Trend H&H likely had a postop bleed now stable will monitor Fluid identified in the pubic area of dissection likely hematoma versus seroma not seem like abscess at this time will monitor Intraperitoneal and extraperitoneal space: Moderate amount of fluid in the abdomen including perihepatic and perisplenic fluid fluid is intermediate to high attenuation and likely contains blood products. There is also a moderate amount of fluid in the central abdomen as well as the dependent pelvis. Fluid in the med/central mesentery is fairly low attenuation. There is hyper attenuating fluid in the retroperitoneum bilaterally beginning near the proximal portions of the posterior pararenal spaces and extending into the pelvis. Findings are consistent with bilateral extraperitoneal hemorrhage. Multilocular fluid collections in the inferior abdomen and pelvis, some of which are difficult to differentiate from adjacent unopacified bowel. Partially loculated peritoneal fluid collections in the inferior abdomen and pelvis. There is a combination of peritoneal and moderate collections of extraperitoneal fluid/blood products anterior to the bladder. Bones/joints: No acute fracture. No dislocation. Soft tissues: Tiny focus of pneumoperitoneum deep to the periumbilical region that may be residual postoperative gas. Infraumbilical skin benita. There are soft tissue benita in the left and right lower quadrants likely ports for laparoscopic procedure. Stranding and reticulation in the anterior abdominal and pelvic cedillo suggest either soft tissue edema from recent procedure or cellulitis. Vasculature: Unremarkable. No abdominal aortic aneurysm. Lymph nodes: Unremarkable. No enlarged lymph nodes. IMPRESSION: Patient is status post a recent laparoscopic prostatectomy. Significant irregularity in the prostate bed as well as intra-and extraperitoneal fluid in the abdomen and pelvis. Recent or active hemorrhage cannot be excluded. Recommendation is for patient hydration and follow-up with a contrast-enhanced study. Some of the lower abdominal and pelvic peritoneal fluid is partially loculated. Developing abscesses cannot be excluded. Irregular airspace disease and nodularity in both lower lobes likely combination of atelectasis and probable pneumonia. The areas of nodularity are indeterminate and short-term interval follow-up is recommended. Additional nonemergent findings above. Thomas Lomeli January 04, 2020 17:36
--- NOTE | 2020-01-04 19:37 | NUR ---
HAND-OFF: Report given to Yue DOAN accordingly shauna pulido.
--- NOTE | 2020-01-04 21:28 | NUR ---
NURSES NOTE: Pt in bed, A/OX4, denies pain at this time. No outward s/s of distress noted. Breathing pattern is even and unlabored on RA. IV site R AC is intact, infusing IVF fluids without incident. All due meds will be given. Call light within reach. Bed at lowest level. Pt will continue to be monitored.
[2020-01-05] VITALS: BP 143/76
[2020-01-05] MEDS: Piperacillin/Tazobactam 3.375 GM in NS 110 ML IVPB SCH ×3 (01:00→16:59)
[2020-01-05] MEDS: HYDROmorphone 1mg/ml Carpuject IVP PRN ×2 (03:43→17:20)
[2020-01-05 04:00] VITALS: BP 152/85
--- NOTE | 2020-01-05 04:43 | NUR ---
NURSES NOTE: Urinary catheter flushed with 50cc q6h per order.
[2020-01-05] MEDS: D5NS w/KCl 40mEq 1000ml 1,000 ML IV SCH (05:30)
[2020-01-05 06:43] LABS: HEMATOCRIT 26.2 % (42.0-52.0); MEAN CORPUSCULAR VOLUME 83 FL (80-99); PLATELET COUNT 438 K/UL (150-450); RED BLOOD COUNT 3.16 M/UL (4.70-6.10); RED CELL DISTRIBUTION WIDTH 15.3 % (11.6-14.8); WHITE BLOOD COUNT 20.4 K/UL (4.8-10.8)
[2020-01-05 07:02] LABS: ALANINE AMINOTRANSFERASE 10 U/L (12-78); ALBUMIN 2.5 G/DL (3.4-5.0); ALBUMIN/GLOBULIN RATIO 0.8 (1.0-2.7); ALKALINE PHOSPHATASE 81 U/L (46-116); ANION GAP 10 mmol/L (5-15); ASPARTATE AMINO TRANSFERASE 19 U/L (15-37); BILIRUBIN,TOTAL 2.5 MG/DL (0.2-1.0); BLOOD UREA NITROGEN 17 mg/dL (7-18); CALCIUM 8.1 MG/DL (8.5-10.1); CARBON DIOXIDE 26 MMOL/L (21-32); CHLORIDE 108 MMOL/L (98-107); CREATININE 1.1 MG/DL (0.55-1.30); POTASSIUM 3.4 MMOL/L (3.5-5.1); SODIUM 144 MMOL/L (136-145)
--- NOTE | 2020-01-05 07:40 | NUR ---
HAND OFF: Report given to FRANKI Barger. Last catheter flush 0600 650cc output
--- NOTE | 2020-01-05 07:41 | NUR ---
NURSE NOTES:BEDSIDE ROUNDS WITH MARKO DOAN.PT.IN BATHROOM TRYING TO DO BM.ABDOMEN LARGE,TENDER TO TOUCH,PASSING GAS BUT NO BM.F/C DRAINING LIGHT LESLI,NO CLOTS.NO CO PAIN.ENCOURAGED TO AMBULATE,COMPLIANT.
[2020-01-05 08:00] VITALS: BP 149/85
[2020-01-05] MEDS: Docusate 100mg cap ORAL SCH ×2 (08:27→16:58)
--- NOTE | 2020-01-05 10:00 | NUR ---
NURSE NOTES:seen by dr. gonzalez,updated re:pt.no bm,and with purplish discoloration on right flank to abdomen.benita intact.pt. compliant in using is.
--- NOTE | 2020-01-05 10:01 | Diagnostic Imaging Report ---
EXAM: XRAY Abdomen 1v HISTORY: Abdominal pain COMPARISON: 12/31/2019. TECHNIQUE: Frontal view of the abdomen obtained. FINDINGS: There is a nonobstructed bowel gas pattern. Skin benita remain in the lower abdomen/pelvis. No definite pathologic calcifications identified. There is no sign of free air. Airspace disease noted in the right lung base. Degenerative changes of the lumbar spine noted. IMPRESSION: NO SIGN OF ACUTE DISEASE IN THE ABDOMEN. NONOBSTRUCTIVE BOWEL GAS PATTERN. AIRSPACE DISEASE RIGHT LUNG BASE.
[2020-01-05] MEDS ORDERED: Milk of Magnesia 30ml Ud ORAL PRN (10:15)
--- NOTE | 2020-01-05 10:33 | Surgery Progress Note ---
Surgery Progress Note Subjective Additional Comments feels much better h/h stable comfortable tolerating diet Objective Last 24 Hour Vital Signs Date Time Temp Pulse Resp B/P (MAP) Pulse Ox O2 Delivery O2 Flow Rate FiO2 01/05/20 08:00 98.2 96 20 149/85 (106) 95 01/05/20 07:36 Room Air 01/05/20 04:00 98.5 83 19 152/85 (107) 93 01/05/20 00:00 98.4 75 19 143/76 (98) 94 01/04/20 21:00 Room Air 01/04/20 20:00 99.5 84 19 128/77 (94) 95 01/04/20 15:58 98.4 93 18 150/91 (110) 97 01/04/20 11:52 98.7 89 18 140/80 (100) 97 I&O Intake and Output 01/04/20 01/05/20 19:00 07:00 Intake Total 1242.5 ml 660.0 ml Output Total 750 ml 650 ml Balance 492.5 ml 10.0 ml Intake Oral 550 ml IV Total 692.5 ml 660.0 ml Output Urine Total 750 ml 650 ml Dressing: other Drains: other Cardiovascular: RSR Respiratory: decreased breath sounds Abdomen: soft, present bowel sounds Extremities: no edema, no tenderness, no cyanosis Laboratory Tests Test 01/05/20 05:30 White Blood Count 20.4 K/UL (4.8-10.8) H Red Blood Count 3.16 M/UL (4.70-6.10) L Hemoglobin 9.0 G/DL (14.2-18.0) L Hematocrit 26.2 % (42.0-52.0) L Mean Corpuscular Volume 83 FL (80-99) Mean Corpuscular Hemoglobin 28.5 PG (27.0-31.0) Mean Corpuscular Hemoglobin Concent 34.3 G/DL (32.0-36.0) Red Cell Distribution Width 15.3 % (11.6-14.8) H Platelet Count 438 K/UL (150-450) Mean Platelet Volume 6.0 FL (6.5-10.1) L Neutrophils (%) (Auto) % (45.0-75.0) Lymphocytes (%) (Auto) % (20.0-45.0) Monocytes (%) (Auto) % (1.0-10.0) Eosinophils (%) (Auto) % (0.0-3.0) Basophils (%) (Auto) % (0.0-2.0) Differential Total Cells Counted 100 Neutrophils % (Manual) 81 % (45-75) H Lymphocytes % (Manual) 11 % (20-45) L Monocytes % (Manual) 1 % (1-10) Eosinophils % (Manual) 6 % (0-3) H Basophils % (Manual) 0 % (0-2) Band Neutrophils 1 % (0-8) Platelet Estimate Adequate Platelet Morphology Normal Hypochromasia 2+ Anisocytosis 1+ Erythrocyte Sedimentation Rate 71 MM/HR (0-20) H Sodium Level 144 MMOL/L (136-145) Potassium Level 3.4 MMOL/L (3.5-5.1) L Chloride Level 108 MMOL/L (98-107) H Carbon Dioxide Level 26 MMOL/L (21-32) Anion Gap 10 mmol/L (5-15) Blood Urea Nitrogen 17 mg/dL (7-18) Creatinine 1.1 MG/DL (0.55-1.30) Estimat Glomerular Filtration Rate > 60 mL/min (>60) Glucose Level 109 MG/DL (74-106) H Calcium Level 8.1 MG/DL (8.5-10.1) L Total Bilirubin 2.5 MG/DL (0.2-1.0) H Direct Bilirubin 1.0 MG/DL (0.0-0.3) H Aspartate Amino Transf (AST/SGOT) 19 U/L (15-37) Alanine Aminotransferase (ALT/SGPT) 10 U/L (12-78) L Alkaline Phosphatase 81 U/L (46-116) C-Reactive Protein, Quantitative 15.5 mg/dL (0.00-0.90) H Total Protein 5.5 G/DL (6.4-8.2) L Albumin 2.5 G/DL (3.4-5.0) L Globulin 3.0 g/dL Albumin/Globulin Ratio 0.8 (1.0-2.7) L Plan Problems: (1) Postoperative abdominal pain Assessment & Plan: 69-year-old male status post lap prostate recovered discharged safely initially had some vomiting discomfort but recovered from that in the patient postoperatively and discharged in stable condition now presents with decreased urine output abdominal pain distention and discomfort. 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 No nausea vomiting currently. States felt a little nausea prior. Has not had a significant bowel movement past 2 days. Is taking narcotic pain medication as necessary. CT reviewed. Seemingly patient had a hemorrhagic event postoperatively but is now stable. CT noted introduction peritoneal fluid extramarital fluid collection notes bruising underneath the epidermis likely from hematoma formation which could be anticipated given the recent surgery. The abdominal discomfort could be likely ileus from recent surgery and some hemoperitoneum. No active bleeding identified patient hemodynamically otherwise fairly stable. Do recommend patient be admitted and monitored closely. Okay for liquid diet. Ambulate out of bed Cuevas to stay in place antibiotics will monitor with serial abdominal examinations. Trend hemoglobin. Thank you for let me participate in patient's care will follow with recommendations Tolerating clear liquid diet now Labs improving Trend H&H likely had a postop bleed now stable will monitor Fluid identified in the pubic area of dissection likely hematoma versus seroma not seem like abscess at this time will monitor adv diet mom Intraperitoneal and extraperitoneal space: Moderate amount of fluid in the abdomen including perihepatic and perisplenic fluid fluid is intermediate to high attenuation and likely contains blood products. There is also a moderate amount of fluid in the central abdomen as well as the dependent pelvis. Fluid in the med/central mesentery is fairly low attenuation. There is hyper attenuating fluid in the retroperitoneum bilaterally beginning near the proximal portions of the posterior pararenal spaces and extending into the pelvis. Findings are consistent with bilateral extraperitoneal hemorrhage. Multilocular fluid collections in the inferior abdomen and pelvis, some of which are difficult to differentiate from adjacent unopacified bowel. Partially loculated peritoneal fluid collections in the inferior abdomen and pelvis. There is a combination of peritoneal and moderate collections of extraperitoneal fluid/blood products anterior to the bladder. Bones/joints: No acute fracture. No dislocation. Soft tissues: Tiny focus of pneumoperitoneum deep to the periumbilical region that may be residual postoperative gas. Infraumbilical skin benita. There are soft tissue benita in the left and right lower quadrants likely ports for laparoscopic procedure. Stranding and reticulation in the anterior abdominal and pelvic cedillo suggest either soft tissue edema from recent procedure or cellulitis. Vasculature: Unremarkable. No abdominal aortic aneurysm. Lymph nodes: Unremarkable. No enlarged lymph nodes. IMPRESSION: Patient is status post a recent laparoscopic prostatectomy. Significant irregularity in the prostate bed as well as intra-and extraperitoneal fluid in the abdomen and pelvis. Recent or active hemorrhage cannot be excluded. Recommendation is for patient hydration and follow-up with a contrast-enhanced study. Some of the lower abdominal and pelvic peritoneal fluid is partially loculated. Developing abscesses cannot be excluded. Irregular airspace disease and nodularity in both lower lobes likely combination of atelectasis and probable pneumonia. The areas of nodularity are indeterminate and short-term interval follow-up is recommended. Additional nonemergent findings above. Thomas Lomeli January 05, 2020 10:33
[2020-01-05 12:00] VITALS: BP 155/87
--- NOTE | 2020-01-05 12:19 | Pulmonology Progress Note ---
Subjective Interval Events: Looking better Constitutional: Reports: no symptoms HEENT: Repors: no symptoms Respiratory: Reports: no symptoms Cardiovascular: Reports: no symptoms Gastrointestinal/Abdominal: Reports: no symptoms Allergies: Coded Allergies: No Known Allergies (Unverified , 12/27/19) Objective Last 24 Hour Vital Signs Date Time Temp Pulse Resp B/P (MAP) Pulse Ox O2 Delivery O2 Flow Rate FiO2 01/05/20 12:00 97.9 90 18 155/87 (109) 95 01/05/20 08:00 98.2 96 20 149/85 (106) 95 01/05/20 07:36 Room Air 01/05/20 04:00 98.5 83 19 152/85 (107) 93 01/05/20 00:00 98.4 75 19 143/76 (98) 94 01/04/20 21:00 Room Air 01/04/20 20:00 99.5 84 19 128/77 (94) 95 01/04/20 15:58 98.4 93 18 150/91 (110) 97 Intake and Output 01/04/20 01/05/20 19:00 07:00 Intake Total 1242.5 ml 660.0 ml Output Total 750 ml 650 ml Balance 492.5 ml 10.0 ml Intake Oral 550 ml IV Total 692.5 ml 660.0 ml Output Urine Total 750 ml 650 ml General Appearance: no acute distress HEENT: normocephalic Respiratory: chest wall non-tender Cardiovascular: normal peripheral pulses Abdomen: normal bowel sounds Microbiology Date/Time Source Procedure Growth Status 01/02/20 23:35 Blood Blood Culture - Preliminary NO GROWTH AFTER 48 HOURS Resulted 01/02/20 23:30 Blood Blood Culture - Preliminary NO GROWTH AFTER 48 HOURS Resulted 01/03/20 02:20 Nasal Nares MRSA Culture - Final NO METHICILLIN RESISTANT STAPH AUREUS... Complete 01/02/20 22:35 Urine,Clean Catch Urine Culture - Preliminary NO GROWTH AFTER 24 HOURS Resulted 01/03/20 02:20 Rectum VRE Culture - Final NO VANCOMYCIN RESISTANT ENTEROCOCCUS ... Complete 01/03/20 02:20 Rectum - Final NO CARBAPENEM-RESISTANT ENTEROBACTERI... Complete Laboratory Tests 01/05/20 05:30: White Blood Count 20.4H, Red Blood Count 3.16L, Hemoglobin 9.0L, Hematocrit 26.2L, Mean Corpuscular Volume 83, Mean Corpuscular Hemoglobin 28.5, Mean Corpuscular Hemoglobin Concent 34.3, Red Cell Distribution Width 15.3H, Platelet Count 438, Mean Platelet Volume 6.0L, Neutrophils (%) (Auto) , Lymphocytes (%) (Auto) , Monocytes (%) (Auto) , Eosinophils (%) (Auto) , Basophils (%) (Auto) , Differential Total Cells Counted 100, Neutrophils % ( Manual) 81H, Lymphocytes % (Manual) 11L, Monocytes % (Manual) 1, Eosinophils % ( Manual) 6H, Basophils % (Manual) 0, Band Neutrophils 1, Platelet Estimate Adequate, Platelet Morphology Normal, Hypochromasia 2+, Anisocytosis 1+, Erythrocyte Sedimentation Rate 71H, Sodium Level 144, Potassium Level 3.4L, Chloride Level 108H, Carbon Dioxide Level 26, Anion Gap 10, Blood Urea Nitrogen 17, Creatinine 1.1, Estimat Glomerular Filtration Rate > 60, Glucose Level 109H , Calcium Level 8.1L, Total Bilirubin 2.5H, Direct Bilirubin 1.0H, Aspartate Amino Transf (AST/SGOT) 19, Alanine Aminotransferase (ALT/SGPT) 10L, Alkaline Phosphatase 81, C-Reactive Protein, Quantitative 15.5H, Total Protein 5.5L, Albumin 2.5L, Globulin 3.0, Albumin/Globulin Ratio 0.8L Current Medications Medications (Trade) Dose Ordered Sig/Juan Carlos Route PRN Reason Start Time Stop Time Status Last Admin Dose Admin Acetaminophen (Tylenol) 650 mg Q4H PRN ORAL Temp >100.5 01/03/20 05:45 02/02/20 05:44 Acetaminophen/ Hydrocodone Bitart (Alviso 5/325) 1 tab Q4H PRN ORAL Mild Pain (Pain Scale 1-3) 01/03/20 10:15 01/10/20 10:14 Dextrose (Dextrose 50%) 25 ml Q30M PRN IV Hypoglycemia 01/03/20 05:45 04/02/20 05:44 Dextrose (Dextrose 50%) 50 ml Q30M PRN IV Hypoglycemia 01/03/20 05:45 04/02/20 05:44 Dextrose/ Electrolytes 1,000 ml @ 50 mls/hr Q20H IV 01/03/20 13:00 02/02/20 12:59 01/05/20 05:30 Docusate Sodium (Colace) 100 mg TWICE A DAY ORAL 01/03/20 10:30 02/02/20 10:29 01/05/20 08:27 Hydromorphone HCl (Dilaudid) 0.5 mg Q3H PRN IVP Moderate Pain (Pain Scale 4-6) 01/03/20 11:45 01/10/20 05:44 01/04/20 01:16 Hydromorphone HCl (Dilaudid) 1 mg Q3H PRN IVP Severe Pain (Pain Scale 7-10) 01/03/20 05:45 01/10/20 05:44 01/05/20 03:43 Magnesium Hydroxide (Mom) 30 ml DAILYPRN PRN ORAL Constipation 01/05/20 10:15 02/04/20 10:14 01/05/20 10:52 Ondansetron HCl (Zofran) 4 mg Q6H PRN IVP Nausea & Vomiting 01/03/20 05:45 02/02/20 05:44 Piperacillin Sod/ Tazobactam Sod 3.375 gm/Sodium Chloride 110 ml @ 27.5 mls/hr Q8H IVPB 01/03/20 09:00 01/10/20 08:59 01/05/20 08:29 Assessment/Plan Assessment/Plan IMPRESSION: 1. Myelodysplasia with persistent leukocytosis. 2. Hypokalemia. Corrected 3. Renal dysfunction. 4. Urinary retention. Goldsmith in place DISCUSSION: Goldsmith has been flushed. Continue irrigation of Goldsmith. Continue antibiotics, oxygen, pulmonary hygiene, and pain control. Noted leakage around goldsmith. Discussed with Dr. Sims. Labs OK Carlos So Omar Syed MD January 05, 2020 12:19
--- NOTE | 2020-01-05 15:45 | NUR ---
*-* INSURANCE *-* UPDATED CLINICALS AND REVIEWS HAVE BEEN FAXED TO: [facility] Ref#[id number] #[phone] FAX#[phone]
--- NOTE | 2020-01-05 15:57 | NUR ---
NURSE NOTES:HAD BM X2 AFTER MOM AND PRUNE JUICE.CLAIMS HE HAD GOOD RELIEF.AMBULATORY,GAIT STEADY.
[2020-01-05 16:00] VITALS: BP 141/91
--- NOTE | 2020-01-05 16:07 | NUR ---
CASE MANAGEMENT: REVIEW 01/05/20 SI:PROSTATE CANCER . MYELODYSPLASIA . PNA 97.9 90 18 155/87 95% ON RA WBC 20.4 H/H 9.0/26.2 K+ 3.4 T.JOSE/D.JOSE 2.5/1.0 IS:IV D5@50ML/HR IV ZOSYN TID COLACE PO BID IV DILAUDID Q3HE/PRN \:3E MED SURG UNIT DCP: HOME WHEN STABLE PLAN: WBC INCREASING CONT TO IRRIGATE BENOIT
[2020-01-05] MEDS ORDERED: VITAMIN C500 M1 ORAL (18:11)
--- NOTE | 2020-01-05 19:18 | NUR ---
HAND-OFF: Report given to MARKO DOAN.PT. STABLE.
--- NOTE | 2020-01-05 19:18 | NUR ---
NURSES NOTE: Pt in bed, A/OX4, no outward s/s of distress noted. Breathing pattern is even and unlabored on RA. Cuevas in place, bag changed, draining to gravity to be flushed q6h. Diet, advanced to regular, reported handled well by pt. IV L FA, 22 gauge intact, patent. All due medications will be given. Bed at lowest level, call light within reach. Pt will continue to be monitored.
[2020-01-05 20:00] VITALS: BP 148/78
[2020-01-06] VITALS: BP 154/62
[2020-01-06] MEDS: D5NS w/KCl 40mEq 1000ml 1,000 ML IV SCH (01:31)
[2020-01-06] MEDS: Piperacillin/Tazobactam 3.375 GM in NS 110 ML IVPB SCH ×3 (01:31→17:00)
[2020-01-06] MEDS: HYDROmorphone 1mg/ml Carpuject IVP PRN (01:34)
[2020-01-06 04:00] VITALS: BP 141/75
--- NOTE | 2020-01-06 07:10 | NUR ---
HAND OFF: Report given to FRANKI Almazan.
--- NOTE | 2020-01-06 07:25 | NUR ---
NURSE NOTES: Handoff received from FRANKI Johnson. Patient is awake and alert, no signs of distress noted, just finished breakfast. Breathing is unlabored on room air, IV is patent and asymptomatic running IVF as ordered. Cuevas catheter is patent and draining to gravity, to be flushed every 6 hours. Bed is low and locked, side rails up x2, call light is within reach.
[2020-01-06 08:00] VITALS: BP 132/78
[2020-01-06] MEDS: Docusate 100mg cap ORAL SCH ×2 (08:33→18:00)
--- NOTE | 2020-01-06 10:49 | Pulmonology Progress Note ---
Subjective Interval Events: Looking better Constitutional: Reports: no symptoms HEENT: Repors: no symptoms Respiratory: Reports: no symptoms Cardiovascular: Reports: no symptoms Gastrointestinal/Abdominal: Reports: no symptoms Allergies: Coded Allergies: No Known Allergies (Unverified , 12/27/19) Objective Last 24 Hour Vital Signs Date Time Temp Pulse Resp B/P (MAP) Pulse Ox O2 Delivery O2 Flow Rate FiO2 01/06/20 09:00 Room Air 01/06/20 08:00 98.2 76 21 132/78 (96) 98 01/06/20 04:00 98.0 76 20 141/75 (97) 94 01/06/20 02:38 97.4 01/06/20 00:00 97.4 80 20 154/62 (92) 95 01/05/20 21:00 Room Air 01/05/20 20:00 98.2 81 20 148/78 (101) 94 01/05/20 16:00 98.1 91 20 141/91 (108) 96 01/05/20 12:00 97.9 90 18 155/87 (109) 95 Intake and Output 01/05/20 01/06/20 19:00 07:00 Intake Total 850 ml 535.0 ml Output Total 700 ml 1150 ml Balance 150 ml -615.0 ml Intake Oral 600 ml 480 ml IV Total 250 ml 55.0 ml Output Urine Total 700 ml 1150 ml # Voids 2 # Bowel Movements 2 2 General Appearance: no acute distress HEENT: normocephalic Respiratory: chest wall non-tender Cardiovascular: normal peripheral pulses Abdomen: normal bowel sounds Microbiology Date/Time Source Procedure Growth Status 01/04/20 01:00 Sputum Gram Stain - Final Complete 01/04/20 01:00 Sputum Sputum Culture - Final NORMAL UPPER RESPIRATORY MIKAEL PRESENT Complete Current Medications Medications (Trade) Dose Ordered Sig/Juan Carlos Route PRN Reason Start Time Stop Time Status Last Admin Dose Admin Acetaminophen (Tylenol) 650 mg Q4H PRN ORAL Temp >100.5 01/03/20 05:45 02/02/20 05:44 01/06/20 06:36 Acetaminophen/ Hydrocodone Bitart (Robert Lee 5/325) 1 tab Q4H PRN ORAL Mild Pain (Pain Scale 1-3) 01/03/20 10:15 01/10/20 10:14 Dextrose (Dextrose 50%) 25 ml Q30M PRN IV Hypoglycemia 01/03/20 05:45 04/02/20 05:44 Dextrose (Dextrose 50%) 50 ml Q30M PRN IV Hypoglycemia 01/03/20 05:45 04/02/20 05:44 Dextrose/ Electrolytes 1,000 ml @ 50 mls/hr Q20H IV 01/03/20 13:00 02/02/20 12:59 01/06/20 01:31 Docusate Sodium (Colace) 100 mg TWICE A DAY ORAL 01/03/20 10:30 02/02/20 10:29 01/06/20 08:33 Hydromorphone HCl (Dilaudid) 0.5 mg Q3H PRN IVP Moderate Pain (Pain Scale 4-6) 01/03/20 11:45 01/10/20 05:44 01/04/20 01:16 Hydromorphone HCl (Dilaudid) 1 mg Q3H PRN IVP Severe Pain (Pain Scale 7-10) 01/03/20 05:45 01/10/20 05:44 01/06/20 01:34 Magnesium Hydroxide (Mom) 30 ml DAILYPRN PRN ORAL Constipation 01/05/20 10:15 02/04/20 10:14 01/05/20 10:52 Ondansetron HCl (Zofran) 4 mg Q6H PRN IVP Nausea & Vomiting 01/03/20 05:45 02/02/20 05:44 Piperacillin Sod/ Tazobactam Sod 3.375 gm/Sodium Chloride 110 ml @ 27.5 mls/hr Q8H IVPB 01/03/20 09:00 01/10/20 08:59 01/06/20 08:33 Assessment/Plan Assessment/Plan IMPRESSION: 1. Myelodysplasia with persistent leukocytosis. 2. Hypokalemia. Corrected; needs additional K 3. Renal dysfunction. 4. Urinary retention. Goldsmith in place 5. Hyperbilirubinemia DISCUSSION: Goldsmith has been flushed. Continue irrigation of Goldsmith. Continue antibiotics, oxygen, pulmonary hygiene, and pain control. Noted leakage around goldsmith. Discussed with Dr. Sims. Labs OK Will replace K Dc planning Will discuss CT findings and hyperbilirubinemia with surgery Carlos So Omar Syed MD January 06, 2020 10:49
--- NOTE | 2020-01-06 11:27 | NUR ---
CASE MANAGEMENT: REVIEW 01/06/20 SI:PROSTATE CANCER . MYELODYSPLASIA . PNA 98.2 76 21 132/78 98% ON RA NO LABS THIS AM IS:IV D5@50ML/HR IV ZOSYN TID COLACE PO BID IV DILAUDID Q3HR/PRN \:3E MED SURG UNIT DCP: HOME WHEN STABLE PLAN: XRAY Abdomen 1v-Abdominal pain-NO SIGN OF ACUTE DISEASE IN THE ABDOMEN. NONOBSTRUCTIVE BOWEL GAS PATTERN. AIRSPACE DISEASE RIGHT LUNG BASE. WBC INCREASING CONT TO IRRIGATE BENOIT AM LAB ON REG DIET
[2020-01-06 12:00] VITALS: BP 145/80
--- NOTE | 2020-01-06 14:58 | Surgery Progress Note ---
Surgery Progress Note Subjective Symptoms: improved, pain absent, tolerating diet, voiding well, passing flatus , BM Objective Last 24 Hour Vital Signs Date Time Temp Pulse Resp B/P (MAP) Pulse Ox O2 Delivery O2 Flow Rate FiO2 01/06/20 12:00 97.9 75 20 145/80 (101) 98 01/06/20 09:00 Room Air 01/06/20 08:00 98.2 76 21 132/78 (96) 98 01/06/20 04:00 98.0 76 20 141/75 (97) 94 01/06/20 02:38 97.4 01/06/20 00:00 97.4 80 20 154/62 (92) 95 01/05/20 21:00 Room Air 01/05/20 20:00 98.2 81 20 148/78 (101) 94 01/05/20 16:00 98.1 91 20 141/91 (108) 96 I&O Intake and Output 01/05/20 01/06/20 19:00 07:00 Intake Total 850 ml 535.0 ml Output Total 700 ml 1150 ml Balance 150 ml -615.0 ml Intake Oral 600 ml 480 ml IV Total 250 ml 55.0 ml Output Urine Total 700 ml 1150 ml # Voids 2 # Bowel Movements 2 2 Dressing: dry Wound: clean Cardiovascular: RSR Respiratory: clear Abdomen: soft, non-tender, present bowel sounds, non-distended Extremities: no edema, no tenderness, no cyanosis Plan Problems: (1) Postoperative abdominal pain Assessment & Plan: 69-year-old male status post lap prostate recovered discharged safely initially had some vomiting discomfort but recovered from that in the patient postoperatively and discharged in stable condition now presents with decreased urine output abdominal pain distention and discomfort. 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 No nausea vomiting currently. States felt a little nausea prior. Has not had a significant bowel movement past 2 days. Is taking narcotic pain medication as necessary. CT reviewed. Seemingly patient had a hemorrhagic event postoperatively but is now stable. CT noted introduction peritoneal fluid extramarital fluid collection notes bruising underneath the epidermis likely from hematoma formation which could be anticipated given the recent surgery. The abdominal discomfort could be likely ileus from recent surgery and some hemoperitoneum. No active bleeding identified patient hemodynamically otherwise fairly stable. Do recommend patient be admitted and monitored closely. Okay for liquid diet. Ambulate out of bed Goldsmith to stay in place antibiotics will monitor with serial abdominal examinations. Trend hemoglobin. Thank you for let me participate in patient's care will follow with recommendations Tolerating clear liquid diet now Labs improving Trend H&H likely had a postop bleed now stable will monitor Fluid identified in the pubic area of dissection likely hematoma versus seroma not seem like abscess at this time will monitor adv diet mom d/c home dc with goldsmith f/u with dr. Carrie barnes goldsmith removal Intraperitoneal and extraperitoneal space: Moderate amount of fluid in the abdomen including perihepatic and perisplenic fluid fluid is intermediate to high attenuation and likely contains blood products. There is also a moderate amount of fluid in the central abdomen as well as the dependent pelvis. Fluid in the med/central mesentery is fairly low attenuation. There is hyper attenuating fluid in the retroperitoneum bilaterally beginning near the proximal portions of the posterior pararenal spaces and extending into the pelvis. Findings are consistent with bilateral extraperitoneal hemorrhage. Multilocular fluid collections in the inferior abdomen and pelvis, some of which are difficult to differentiate from adjacent unopacified bowel. Partially loculated peritoneal fluid collections in the inferior abdomen and pelvis. There is a combination of peritoneal and moderate collections of extraperitoneal fluid/blood products anterior to the bladder. Bones/joints: No acute fracture. No dislocation. Soft tissues: Tiny focus of pneumoperitoneum deep to the periumbilical region that may be residual postoperative gas. Infraumbilical skin benita. There are soft tissue benita in the left and right lower quadrants likely ports for laparoscopic procedure. Stranding and reticulation in the anterior abdominal and pelvic cedillo suggest either soft tissue edema from recent procedure or cellulitis. Vasculature: Unremarkable. No abdominal aortic aneurysm. Lymph nodes: Unremarkable. No enlarged lymph nodes. IMPRESSION: Patient is status post a recent laparoscopic prostatectomy. Significant irregularity in the prostate bed as well as intra-and extraperitoneal fluid in the abdomen and pelvis. Recent or active hemorrhage cannot be excluded. Recommendation is for patient hydration and follow-up with a contrast-enhanced study. Some of the lower abdominal and pelvic peritoneal fluid is partially loculated. Developing abscesses cannot be excluded. Irregular airspace disease and nodularity in both lower lobes likely combination of atelectasis and probable pneumonia. The areas of nodularity are indeterminate and short-term interval follow-up is recommended. Additional nonemergent findings above. Thomas Lomeli January 06, 2020 14:58
--- NOTE | 2020-01-06 15:17 | NUR ---
*-* INSURANCE *-* UPDATED CLINICALS AND REVIEWS HAVE BEEN FAXED TO: [employer] Ref#[id number] #[phone] FAX#[phone]
[2020-01-06 16:00] VITALS: BP 147/79
--- NOTE | 2020-01-06 18:30 | NUR ---
NURSE NOTES: Patient was safely discharged from to home via private vehicle. Patient belongings were verified, IV was removed with no symptoms, and patient wristband removed. Patient was provided with patient information packet. Patient's questions about medications, condition, and follow up were answered.
[2020-01-06] MEDS ORDERED: NS Irrig 1000ml ONE (18:53)
--- NOTE | 2020-01-09 00:01 | Discharge Summary ---
Discharge Summary Discharge Summary _ DATE OF ADMISSION: 01/03/2020 DATE OF DISCHARGE: 01/06/2020 CONSULTANTS: Dr. Thomas Lomeli BRIEF HOSPITAL COURSE: Patient is a 69-year-old male, who was recently discharged due to prostate cancer, status post prostatectomy. He was discharged with Cuevas catheter. He was placed on Levaquin and [place]. He reported decreased urine output. He then presented to ED for evaluation. He has history of myelodysplasia. Upon evaluation in ED, blood work showed WBC elevated to 21. Hemoglobin 10, hematocrit 30. Creatinine was elevated to 1.5. BUN 20. GFR 47. Urinalysis showed 3+ protein, 2+ ketone, 2+ blood, negative nitrite, +1 leukocyte esterase , 5-10 urine RBC, 2-[address] imaging showed multiple findings including pneumonia as well as possible retroperitoneal hemorrhage. Surgeon was consulted. Patient was then admitted for further evaluation. Surgical evaluation was done. There was no active bleeding identified and patient was hemodynamically stable. He was placed on liquid diet. Advised ambulation. Monitor urine status and Cuevas catheter. He was given empiric antibiotics. Patient would need serial abdominal examinations. There was mild blood noted around Cuevas. Urine was yessi-colored. Cuevas was irrigated PRN. Diet was eventually advanced. He was given bowel regimen. KUB showed nonobstructed bowel gas pattern. He had low potassium levels. He was given potassium supplements. Bilirubin was elevated. He was tolerating diet and was voiding well. Fluid identified in the pubic area of dissection likely hematoma versus seroma, did not seem to be an abscess. Patient overall condition improved. Patient was cleared for discharge home with Cuevas catheter. To follow-up with urologist for Cuevas removal. FINAL DIAGNOSES: Myelodysplasia with persistent leukocytosis Hypokalemia, corrected Renal dysfunction Urinary retention with Cuevas catheter in place Hyperbilirubinemia Postoperative abdominal pain DISPOSITION: Patient was discharged home. DISCHARGE MEDICATIONS: Refer to Discharge Medication List. DISCHARGE INSTRUCTIONS: Follow-up with urologist in a week. I have been assigned to complete a discharge summary on this account, I was not involved with the patient's management.--ROSIE Glass Jacqueline Robles NP Jan 09, 2020 00:01
--- NOTE | 2020-01-09 15:25 | NUR ---
*-* INSURANCE *-* DISCHARGE SUMMARY HAS BEEN FAXED TO: [employer] Ref#[id number] #[phone] FAX#[phone]
== END 2020-01-06 18:54 | disposition home or self-care (01) | DRG 811 ==
LOC: EMR 22:32 → 3E 01-03 02:00 → EDBEDREQ 01-03 04:51
DX: D46.9 Myelodysplastic syndrome, unspecified (principal); J18.9 Pneumonia, unspecified organism; G89.18 Other acute postprocedural pain; E87.6 Hypokalemia; Z85.46 Personal history of malignant neoplasm of prostate; N28.9 Disorder of kidney and ureter, unspecified; R33.9 Retention of urine, unspecified; Z90.79 Acquired absence of other genital organ(s); R10.9 Unspecified abdominal pain
CPT/HCPCS: 36415; 74018; 74176; 80048; 80053; 81003; 82248; 83605; 83690; 83735; 85007; 85025; 85610; 85651; 85730; 86140; 87040; 87070; 87081; 87086; 87205; 96361; 96365; 96366; 96367; 96368; 96375; 96376; 99285; J7030

== ENCOUNTER 2020-01-07 14:57 | Inpatient (IN) | payer OTHER ==
[~2020-01-07] VITALS: Ht 172.7 cm; Wt 83.5 kg
[~2020-01-07 14:57] MED LIST changes: +VITAMIN C500 M1 ORAL
[2020-01-07 15:10] VITALS: BP 166/97
[2020-01-07 16:48] LABS: ANION GAP 10 mmol/L (5-15); BLOOD UREA NITROGEN 11 mg/dL (7-18); CALCIUM 8.2 MG/DL (8.5-10.1); CARBON DIOXIDE 28 MMOL/L (21-32); CHLORIDE 102 MMOL/L (98-107); CREATININE 1.1 MG/DL (0.55-1.30); INR 1.4 (0.9-1.1); POTASSIUM 3.1 MMOL/L (3.5-5.1); SODIUM 140 MMOL/L (136-145)
--- NOTE | 2020-01-07 16:48 | Emergency Room Report ---
History of Present Illness General Chief Complaint: Male Urogenital Problems Source: Patient Present Illness HPI Patient presents with complaints of decreased urine output from the Goldsmith catheter that he has in place also increased discomfort in the suprapubic region Patient is fairly poor historian and cannot give me history regarding the Goldsmith catheter. He reports that he was recently here and requesting for medical records to be reviewed Denies any fevers or chills denies any chest pain denies any mid or upper abdominal pain Patient reports that he has not seen any urine output for over 10 hours and also with increased discomfort Presented back to the emergency room Denies any vomiting or diarrhea denies any fevers or chills Review of medical records reveals mild dysplastic syndrome with Complex/major surgery recently in the hospital With laparoscopic prostatectomy and multiple anastomoses Allergies: Coded Allergies: No Known Allergies (Unverified , 12/27/19) COVID-19 Screening Contact w/high risk pt: No Recent Travel to affected area: No Experienced COVID-19 symptoms?: No COVID-19 Testing performed [employer]: Yes COVID-19 Screening: Negative COVID-19 COVID-19 Testing Source: [facility] [place] Patient History Past Medical History: old chart reviewed Reviewed Nursing Documentation: PMH: Agreed; PSxH: Agreed Nursing Documentation-PMH Hx Cardiac Problems: No Hx Cancer: Yes Hx Gastrointestinal Problems: No Hx Neurological Problems: No Review of Systems All Other Systems: negative except mentioned in HPI Physical Exam Vital Signs Date Time Temp Pulse Resp B/P (MAP) Pulse Ox O2 Delivery O2 Flow Rate FiO2 01/07/20 15:03 98.4 102 20 166/97 (120) 96 Room Air Sp02 EP Interpretation: reviewed, normal General Appearance: well appearing, no apparent distress Head: normocephalic, atraumatic Eyes: bilateral eye PERRL, bilateral eye EOMI ENT: hearing grossly normal, EOM grossly intact Neck: supple Respiratory: lungs clear, no respiratory distress, no retraction Cardiovascular #1: regular rate, rhythm Gastrointestinal: non tender, soft Genitourinary: other - Discomfort noted at the suprapubic area some fullness Goldsmith catheter in place the bag is empty Musculoskeletal: normal inspection Neurologic: alert, oriented x3 Skin: no rash, other - However scrotal swelling is noted and also edema in both lower extremities Lymphatic: no adenopathy Medical Decision Making Diagnostic Impression: Primary Impression: Urinary retention Additional Impressions: S/P prostatectomy Myelodysplastic disease ER Course Multiple differentials in consideration including but not limited to clogged Goldsmith catheter, blood in the bladder, complication from previous fistula Patient has history of urethral/prostate fistulas Given this, the goldsmith catheter was ordered to be flushed Soon after I was notified by nursing staff that after the flushing did not provide any urine output She removed the catheter and replaced it with another catheter and now sees significant blood in the urine bag. I did ask regarding if there was any other orders by other providers regarding the catheter removal There was no orders from other providers. And there were no other orders for removal of the catheter especially given the patient's recent procedure Unfortunately this did occur, and therefore urology was contacted emergently They request removal of the catheter there is obvious concern for perforation of , existing anastomoses /fistulas Recommendations were followed and patient was stood at the side of the bed and there is urine output with this procedure It is noted by urology that after prostatectomy that patients can be incontinent of urine and this was somewhat reassuring given the urine output without obvious gross hematuria CT imaging shows nonspecific findings and recommendation is made with possible contrast for further evaluation however there does appear to be repositioning of the catheter Case also discussed with patient's general surgeon and patient admitted for further inpatient care Labs Test 01/07/20 16:10 01/08/20 05:15 White Blood Count 22.6 K/UL (4.8-10.8) 20.1 K/UL (4.8-10.8) Red Blood Count 3.45 M/UL (4.70-6.10) 3.39 M/UL (4.70-6.10) Hemoglobin 9.5 G/DL (14.2-18.0) 9.6 G/DL (14.2-18.0) Hematocrit 30.3 % (42.0-52.0) 27.5 % (42.0-52.0) Mean Corpuscular Volume 88 FL (80-99) 81 FL (80-99) Mean Corpuscular Hemoglobin 27.7 PG (27.0-31.0) 28.4 PG (27.0-31.0) Mean Corpuscular Hemoglobin Concent 31.5 G/DL (32.0-36.0) 34.9 G/DL (32.0-36.0) Red Cell Distribution Width 16.7 % (11.6-14.8) 14.6 % (11.6-14.8) Platelet Count 578 K/UL (150-450) 553 K/UL (150-450) Mean Platelet Volume 7.6 FL (6.5-10.1) 6.5 FL (6.5-10.1) Neutrophils (%) (Auto) % (45.0-75.0) % (45.0-75.0) Lymphocytes (%) (Auto) % (20.0-45.0) % (20.0-45.0) Monocytes (%) (Auto) % (1.0-10.0) % (1.0-10.0) Eosinophils (%) (Auto) % (0.0-3.0) % (0.0-3.0) Basophils (%) (Auto) % (0.0-2.0) % (0.0-2.0) Differential Total Cells Counted 100 100 Neutrophils % (Manual) 83 % (45-75) 75 % (45-75) Lymphocytes % (Manual) 3 % (20-45) 8 % (20-45) Monocytes % (Manual) 3 % (1-10) 5 % (1-10) Eosinophils % (Manual) 10 % (0-3) 12 % (0-3) Basophils % (Manual) 0 % (0-2) 0 % (0-2) Band Neutrophils 1 % (0-8) 0 % (0-8) Platelet Estimate Increased Increased Platelet Morphology Normal Hypochromasia 2+ Anisocytosis 1+ 1+ Prothrombin Time 14.7 SEC (9.30-11.50) Prothromb Time International Ratio 1.4 (0.9-1.1) Sodium Level 140 MMOL/L (136-145) 142 MMOL/L (136-145) Potassium Level 3.1 MMOL/L (3.5-5.1) 3.5 MMOL/L (3.5-5.1) Chloride Level 102 MMOL/L (98-107) 104 MMOL/L (98-107) Carbon Dioxide Level 28 MMOL/L (21-32) 28 MMOL/L (21-32) Anion Gap 10 mmol/L (5-15) 11 mmol/L (5-15) Blood Urea Nitrogen 11 mg/dL (7-18) 8 mg/dL (7-18) Creatinine 1.1 MG/DL (0.55-1.30) 1.1 MG/DL (0.55-1.30) Estimat Glomerular Filtration Rate > 60 mL/min (>60) > 60 mL/min (>60) Glucose Level 97 MG/DL (74-106) 90 MG/DL (74-106) Calcium Level 8.2 MG/DL (8.5-10.1) 8.3 MG/DL (8.5-10.1) Polychromasia 1+ CT/MRI/US Diagnostic Results CT/MRI/US Diagnostic Results : Impression CT abdomen pelvisIMPRESSION: 1. Patient is status post recent laparoscopic prostatectomy. There has been interval repositioning of the Goldsmith catheter. 2. Altered anatomy near the surgical bed. Antegrade or retrograde administration of contrast would be helpful in clarifying bladder versus adjacent fluid collections. 3. Foci of hematomas extra and intraperitoneal, foci of gas in the pelvic soft tissues both intra-and extraperitoneal are noted. 4. Developing abscesses are not excluded. 5. Mild decrease in bilateral lower lobe atelectasis/infiltrate with moderate residual changes. Small left pleural effusion. 6. Persistent mild ascites, massive splenomegaly. Last Vital Signs Date Time Temp Pulse Resp B/P (MAP) Pulse Ox O2 Delivery O2 Flow Rate FiO2 01/06/20 15:10 98.4 108 20 166/97 96 Room Air Status: improved Disposition: ADMITTED INPATIENT Condition: Serious Referrals: NON PHYSICIAN (PCP) Lalita Jesus DO January 07, 2020 16:48
[2020-01-07 16:51] LABS: HEMATOCRIT 30.3 % (42.0-52.0); HEMOGLOBIN 9.5 G/DL (14.2-18.0); MEAN CORPUSCULAR VOLUME 88 FL (80-99); PLATELET COUNT 578 K/UL (150-450); RED BLOOD COUNT 3.45 M/UL (4.70-6.10); RED CELL DISTRIBUTION WIDTH 16.7 % (11.6-14.8)
[2020-01-07 16:55] LABS: WHITE BLOOD COUNT 22.6 K/UL (4.8-10.8)
--- NOTE | 2020-01-07 17:00 | Diagnostic Imaging Report ---
CT abdomen and pelvis without contrast History: Pain. History of recent laparoscopic prostatectomy. Technique: Axial noncontrast CT of the abdomen and pelvis with coronal, sagittal reformatted images. CTDI is 10.3 mGy and DLP is 565.7 mGy-cm. Technique more: One or more of the following dose reduction techniques were used: automated exposure control, adjustment of the mA and/or kV according to patient size, use of iterative reconstruction technique. Comparison: 01/03/2020 Findings: Lung bases: Decreased bilateral lower lobe atelectasis/infiltrates. Moderate residual changes remain. Small left pleural effusion. Distal heart and esophagus: Normal Liver: Small perihepatic ascites Gallbladder: Partially distended. Spleen: Massive splenomegaly with small perisplenic ascites. Pancreas: Normal Adrenals: Normal Kidneys: Mild bilateral perinephric streakiness is unchanged negative for hydronephrosis or stones. Aorta: Normal caliber. Bowel: Nondistended rectum and sigmoid. Minimal diverticulosis. Scattered stool in the transverse and right colon. Small diverticula near the hepatic flexure. Caliber of small bowel loops is normal Portable: Anterior abdominal wall benita, mild body will edema Pelvis/Peritoneum: Perihepatic perisplenic ascites is unchanged. Mid mesenteric fluid is seen. Lower anterior abdominal fluid around the omentum and abutting the anterior peritoneal surface is seen. Decreased size of the previously identified upper pelvic fluid collection. Left inguinal fat containing hernia with fluid at its distal aspect proximal to the scrotum. Portion of the presumed urinary bladder is seen herniating into the more proximal aspect of the inguinal canal. Cuevas catheter is seen. It extends through the prostate bed into the upper pelvis. There is a bilobed fluid-filled structure in the pelvis. The shape of anterior collection appears to be the urinary bladder with superior anterior aspect herniating into the left inguinal hernia. Tip of the Cuevas catheter is in the more posterior fluid collection. Previously demonstrated this to be in the anterior collection which was presumed to be the urinary bladder. A contrast exam either antegrade or retrograde would be helpful in further clarifying the structures. Areas of retroperitoneal hemorrhage along the lower anterior peritoneal surface, foci of gas near the left pelvic sidewall, upper abdomen, around the Cuevas catheter and posterior to the pubic symphysis is seen. Bones: No change IMPRESSION: 1. Patient is status post recent laparoscopic prostatectomy. There has been interval repositioning of the Cuevas catheter. 2. Altered anatomy near the surgical bed. Antegrade or retrograde administration of contrast would be helpful in clarifying bladder versus adjacent fluid collections. 3. Foci of hematomas extra and intraperitoneal, foci of gas in the pelvic soft tissues both intra-and extraperitoneal are noted. 4. Developing abscesses are not excluded. 5. Mild decrease in bilateral lower lobe atelectasis/infiltrate with moderate residual changes. Small left pleural effusion. 6. Persistent mild ascites, massive splenomegaly.
[2020-01-07 17:02] VITALS: BP 158/90
[2020-01-07 18:17] VITALS: BP 156/78
[2020-01-07 20:03] VITALS: BP 151/83
[2020-01-07 21:00] VITALS: BP 153/79
[2020-01-07] MEDS ORDERED: HYDROcodone/Acetamin 5/325 tab ORAL PRN (23:45)
[2020-01-08] VITALS: BP 155/79
[2020-01-08 04:00] VITALS: BP 152/82
[2020-01-08 05:42] LABS: HEMATOCRIT 27.5 % (42.0-52.0); HEMOGLOBIN 9.6 G/DL (14.2-18.0); MEAN CORPUSCULAR VOLUME 81 FL (80-99); PLATELET COUNT 553 K/UL (150-450); RED BLOOD COUNT 3.39 M/UL (4.70-6.10); RED CELL DISTRIBUTION WIDTH 14.6 % (11.6-14.8); WHITE BLOOD COUNT 20.1 K/UL (4.8-10.8)
[2020-01-08 06:55] LABS: ANION GAP 11 mmol/L (5-15); BLOOD UREA NITROGEN 8 mg/dL (7-18); CALCIUM 8.3 MG/DL (8.5-10.1); CARBON DIOXIDE 28 MMOL/L (21-32); CHLORIDE 104 MMOL/L (98-107); CREATININE 1.1 MG/DL (0.55-1.30); POTASSIUM 3.5 MMOL/L (3.5-5.1); SODIUM 142 MMOL/L (136-145)
--- NOTE | 2020-01-08 07:39 | History & Physical ---
History and Physical History & Physicial DATE OF ADMISSION: 01/07/2020 HISTORY OF PRESENT ILLNESS: This is a 69-year-old who was discharged from the hospital recently after open prostatectomy. The procedure was prolonged and complicated, but the patient had an excellent outcome and was discharged home a few days ago with a Goldsmith catheter in place. He was readmitted last week due to urinary leakage around goldsmith and then discharged after irrigation He returned yesterday saying decreased urine output. He also had abdominal distention and pain. His Goldsmith was replaced by RN with significant hematuria. Catheter was then removed per urology. Currently, he is feeling better. PAST MEDICAL HISTORY: Prostate surgery, prostate CA.Myelodysplasia HOME MEDICATIONS: Otherwise none. REVIEW OF SYSTEMS: Denies any headaches, hematemesis, melena, hematochezia, or weight loss. PHYSICAL EXAMINATION: VITAL BLOOD: Blood pressure 150/80, heart rate 85, respirations 18, afebrile. GENERAL: Reveals a 69-year-old male. HEENT: Unremarkable. LUNGS: Clear breath sounds bilaterally. ABDOMEN: Soft. EXTREMITIES: There is no edema. NEUROLOGICAL: Nonfocal. LABORATORY DATA: Reviewed IMPRESSION: 1. Myelodysplasia with persistent leukocytosis. 2. Electrolyte disorder 3. Renal dysfunction. 4. Hematuria DISCUSSION: Continue antibiotics, oxygen, pulmonary hygiene, and pain control. I will follow. Discussed with Dr. Sims. Monitor hematuria and urinary output Scottie Mcconnell M.D. Scottie Mcconnell MD January 08, 2020 07:39
[2020-01-08 08:00] VITALS: BP 154/53
[2020-01-08] MEDS: Docusate 100mg cap ORAL SCH ×2 (09:15→17:28)
[2020-01-08] MEDS: Ascorbic Acid 500mg tab ORAL SCH (09:15)
[2020-01-08] MEDS: Levofloxacin 500mg tab ORAL SCH (09:16)
[2020-01-08 12:00] VITALS: BP 152/88
--- NOTE | 2020-01-08 12:34 | Consultation ---
History of Present Illness General Date patient seen: January 08, 2020 Reason for Hospitalization: Male Urogenital Problems Present Illness HPI This is a very pleasant [age]-year-old male well-known to me from prior admission patient had prostate cancer status post laparoscopic prostatectomy did well postoperatively modest abdominal discomfort potential ileus and which resolved and was discharged safely. Returned thereafter with abdominal pain which was diagnosed with urinary retention and resolved. Since he was home doing well but began to have urinary retention again came to emergency room for evaluation. Plan was to have his Cuevas irrigate again is likely clogged much like prior episode is given recent surgery he is prone to making small clots but unfortunately the catheter was exchanged and likely concerning for anastomotic injury. He was noted to have a lot of blood into the Cuevas with hematuria. Cuevas was removed and he has been urinating small amounts of hematuria since. He was admitted for observation care management and planning. Case was discussed with urologist. Patient currently states he feels better. No nausea vomiting fever chills. Labs noted. Allergies: Coded Allergies: No Known Allergies (Unverified , 12/27/19) COVID-19 Screening Contact w/high risk pt: No Recent Travel to affected area: No Experienced COVID-19 symptoms?: No Medication History Scheduled Ascorbic Acid* (Vitamin C*), 500 MG ORAL DAILY, (Reported) Docusate Sodium* (Colace*), 100 MG ORAL TWICE A DAY Levofloxacin* (Levaquin*), 500 MG ORAL DAILY Multivitamins* (Multivitamins*), 1 TAB ORAL DAILY, (Reported) Scheduled PRN Hydrocodone Bit/Acetaminophen 5-325* ([place] 5-325 Tablet*), 1 TAB ORAL Q4H PRN Discontinued Medications [vit c], 500 MG PO DAILY, (Reported) Discontinued Reason: Prescription changed Patient History History Provided By: Patient, Medical Record Healthcare decision maker Resuscitation status Advanced Directive on File Past Medical/Surgical History Past Medical/Surgical History: (1) Prostate CA (2) Postoperative abdominal pain (3) Abnormal urogenital findings Review of Systems Review of Symptoms General ROS: no weight loss or fever Psychological ROS: no depression or mood changes, no memory loss Ophthalmic ROS: no visual changes or eye irritation ENT ROS: no nasal congestion, hearing loss, dizziness Allergy and Immunology ROS: no allergic symptoms or urticaria Hematological and Lymphatic ROS: no swollen glands, unusual bleeding or bruising Endocrine ROS: no polyuria, polydipsia, weight changes, temperature intolerance Respiratory ROS: no cough, shortness of breath, or wheezing Cardiovascular ROS: no chest pain or dyspnea on exertion Gastrointestinal ROS: denies abdominal pain, bright red blood in stool. Musculoskeletal ROS: no myalgias or arthralgias Neurological ROS: no TIA or stroke symptoms Dermatological ROS: no new or changing skin lesions, rashes or pruritis Physical Exam Physical Exam General appearance: alert, cooperative, no distress, appears stated age Head: Normocephalic, without obvious abnormality, atraumatic Eyes: conjunctivae/corneas clear. PERRL, EOM's intact. Fundi benign Throat: Lips, mucosa, and tongue normal. Teeth and gums normal Neck: supple, symmetrical, trachea midline, no adenopathy, thyroid: not enlarged, symmetric, no tenderness/mass/nodules, no carotid bruit and no JVD Lungs: clear to auscultation bilaterally Heart: regular rate and rhythm, S1, S2 normal, no murmur, click, rub or gallop Abdomen: soft, non-tender. Bowel sounds normal. No masses, no organomegaly penile edema and scrotal swelling much improved. Pubic hematoma improved. Bruising improved. Extremities: extremities normal, atraumatic, no cyanosis or edema Pulses: 2+ and symmetric Skin: Skin color, texture, turgor normal. No rashes or lesions Neurologic: Grossly normal Last 24 Hour Vital Signs Date Time Temp Pulse Resp B/P (MAP) Pulse Ox O2 Delivery O2 Flow Rate FiO2 01/08/20 09:00 Room Air 01/08/20 08:00 98.5 74 18 154/53 (86) 94 01/08/20 04:00 98.7 72 18 152/82 (105) 95 01/08/20 01:10 Room Air 01/08/20 00:00 98.4 73 20 155/79 (104) 94 01/07/20 21:15 98.5 91 20 153/79 98 Room Air 01/07/20 21:00 98.5 91 20 153/79 98 Room Air 01/07/20 20:03 98.3 96 20 151/83 98 Room Air 01/07/20 18:17 98.0 99 20 156/78 97 Room Air 01/07/20 17:02 98.4 90 17 158/90 99 Room Air 01/07/20 15:10 98.4 108 20 166/97 96 Room Air 01/07/20 15:03 98.4 102 20 166/97 (120) 96 Room Air Intake and Output 01/07/20 01/08/20 19:00 07:00 Intake Total 375 ml Output Total 1100 ml 600 ml Balance -1100 ml -225 ml Intake Oral 300 ml IV Total 75 ml Output Urine Total 1100 ml 600 ml # Voids 3 # Bowel Movements 2 Laboratory Tests Test 01/07/20 16:10 01/08/20 05:15 White Blood Count 22.6 K/UL (4.8-10.8) *H 20.1 K/UL (4.8-10.8) H Red Blood Count 3.45 M/UL (4.70-6.10) L 3.39 M/UL (4.70-6.10) L Hemoglobin 9.5 G/DL (14.2-18.0) L 9.6 G/DL (14.2-18.0) L Hematocrit 30.3 % (42.0-52.0) L 27.5 % (42.0-52.0) L Mean Corpuscular Volume 88 FL (80-99) 81 FL (80-99) Mean Corpuscular Hemoglobin 27.7 PG (27.0-31.0) 28.4 PG (27.0-31.0) Mean Corpuscular Hemoglobin Concent 31.5 G/DL (32.0-36.0) L 34.9 G/DL (32.0-36.0) Red Cell Distribution Width 16.7 % (11.6-14.8) H 14.6 % (11.6-14.8) Platelet Count 578 K/UL (150-450) H 553 K/UL (150-450) H Mean Platelet Volume 7.6 FL (6.5-10.1) 6.5 FL (6.5-10.1) Neutrophils (%) (Auto) % (45.0-75.0) % (45.0-75.0) Lymphocytes (%) (Auto) % (20.0-45.0) % (20.0-45.0) Monocytes (%) (Auto) % (1.0-10.0) % (1.0-10.0) Eosinophils (%) (Auto) % (0.0-3.0) % (0.0-3.0) Basophils (%) (Auto) % (0.0-2.0) % (0.0-2.0) Differential Total Cells Counted 100 100 Neutrophils % (Manual) 83 % (45-75) H 75 % (45-75) Lymphocytes % (Manual) 3 % (20-45) L 8 % (20-45) L Monocytes % (Manual) 3 % (1-10) 5 % (1-10) Eosinophils % (Manual) 10 % (0-3) H 12 % (0-3) H Basophils % (Manual) 0 % (0-2) 0 % (0-2) Band Neutrophils 1 % (0-8) 0 % (0-8) Platelet Estimate Increased H Increased H Platelet Morphology Normal Hypochromasia 2+ Anisocytosis 1+ 1+ Prothrombin Time 14.7 SEC (9.30-11.50) H Prothromb Time International Ratio 1.4 (0.9-1.1) H Sodium Level 140 MMOL/L (136-145) 142 MMOL/L (136-145) Potassium Level 3.1 MMOL/L (3.5-5.1) L 3.5 MMOL/L (3.5-5.1) Chloride Level 102 MMOL/L (98-107) 104 MMOL/L (98-107) Carbon Dioxide Level 28 MMOL/L (21-32) 28 MMOL/L (21-32) Anion Gap 10 mmol/L (5-15) 11 mmol/L (5-15) Blood Urea Nitrogen 11 mg/dL (7-18) 8 mg/dL (7-18) Creatinine 1.1 MG/DL (0.55-1.30) 1.1 MG/DL (0.55-1.30) Estimat Glomerular Filtration Rate > 60 mL/min (>60) > 60 mL/min (>60) Glucose Level 97 MG/DL (74-106) 90 MG/DL (74-106) Calcium Level 8.2 MG/DL (8.5-10.1) L 8.3 MG/DL (8.5-10.1) L Polychromasia 1+ Microbiology Date/Time Source Procedure Growth Status 01/07/20 21:00 Rectum Received Height (Feet): 5 Height (Inches): 8.00 Weight (Pounds): 184 Medications Current Medications Medications (Trade) Dose Ordered Sig/Juan Carlos Route PRN Reason Start Time Stop Time Status Last Admin Dose Admin Acetaminophen/ Hydrocodone Bitart ([place] 5/325) 1 tab Q4H PRN ORAL For Pain 01/07/20 23:45 01/14/20 23:44 Ascorbic Acid (Vitamin C) 500 mg DAILY ORAL 01/08/20 09:00 02/07/20 08:59 01/08/20 09:15 Docusate Sodium (Colace) 100 mg TWICE A DAY ORAL 01/08/20 09:00 02/07/20 08:59 01/08/20 09:15 Levofloxacin (Levaquin) 500 mg DAILY ORAL 01/08/20 09:00 01/15/20 08:59 01/08/20 09:16 Multivitamins (Multivitamins) 1 tab DAILY ORAL 01/08/20 09:00 02/07/20 08:59 01/08/20 09:15 Ondansetron HCl (Zofran) 4 mg Q6H PRN IVP Nausea & Vomiting 01/07/20 23:45 02/06/20 23:44 Sodium Chloride 1,000 ml @ 75 mls/hr [id number] IV 01/07/20 23:45 02/06/20 23:44 01/08/20 00:26 Assessment/Plan Problem List: (1) Abnormal urogenital findings Assessment & Plan: Patient unfortunately had Cuevas replaced in emergency department for potential clogged Cuevas and urinary retention. CT reviewed and there is a potential that the anastomosis was compromised by reinsertion of Cuevas. Currently he is urinating okay and more comfortable without the Cuevas in place. No nausea vomiting fever chills. Myelodysplasia labs stable Exam actually improved as compared to prior admission is pubic scrotal penile swelling all improved. Hematuria noted in patient's voids. Discussed case with urology will monitor closely may need reexploration In which I will be available for versus potential scope and catheter placement. We will monitor over the course of the next day or 2 with planning as clinical exam noted. Thank you for let me participate in patient's care will follow with recommendations okay for diet Trend labs ICD Codes: R89.9 - Unspecified abnormal finding in specimens from other organs , systems and tissues SNOMED: 007915716, [id number] (2) Prostate CA ICD Codes: C61 - Malignant neoplasm of prostate SNOMED: 290263025 (3) Postoperative abdominal pain Assessment & Plan: Pelvis/Peritoneum: Perihepatic perisplenic ascites is unchanged. Mid mesenteric fluid is seen. Lower anterior abdominal fluid around the omentum and abutting the anterior peritoneal surface is seen. Decreased size of the previously identified upper pelvic fluid collection. Left inguinal fat containing hernia with fluid at its distal aspect proximal to the scrotum. Portion of the presumed urinary bladder is seen herniating into the more proximal aspect of the inguinal canal. Cuevas catheter is seen. It extends through the prostate bed into the upper pelvis. There is a bilobed fluid-filled structure in the pelvis. The shape of anterior collection appears to be the urinary bladder with superior anterior aspect herniating into the left inguinal hernia. Tip of the Cuevas catheter is in the more posterior fluid collection. Previously demonstrated this to be in the anterior collection which was presumed to be the urinary bladder. A contrast exam either antegrade or retrograde would be helpful in further clarifying the structures. Areas of retroperitoneal hemorrhage along the lower anterior peritoneal surface, foci of gas near the left pelvic sidewall, upper abdomen, around the Cuevas catheter and posterior to the pubic symphysis is seen. Bones: No change IMPRESSION: 1. Patient is status post recent laparoscopic prostatectomy. There has been interval repositioning of the Cuevas catheter. 2. Altered anatomy near the surgical bed. Antegrade or retrograde administration of contrast would be helpful in clarifying bladder versus adjacent fluid collections. 3. Foci of hematomas extra and intraperitoneal, foci of gas in the pelvic soft tissues both intra-and extraperitoneal are noted. 4. Developing abscesses are not excluded. 5. Mild decrease in bilateral lower lobe atelectasis/infiltrate with moderate residual changes. Small left pleural effusion. 6. Persistent mild ascites, massive splenomegaly. ICD Codes: R10.9 - Unspecified abdominal pain; G89.18 - Other acute postprocedural pain SNOMED: 70753726, [id number] Thomas Lomeli January 08, 2020 12:34
[2020-01-08 16:00] VITALS: BP 146/83
[2020-01-08 20:00] VITALS: BP 146/83
[2020-01-09] VITALS: BP 137/74
[2020-01-09 04:00] VITALS: BP 150/76
[2020-01-09 07:22] LABS: HEMATOCRIT 28.8 % (42.0-52.0); HEMOGLOBIN 9.8 G/DL (14.2-18.0); MEAN CORPUSCULAR VOLUME 82 FL (80-99); PLATELET COUNT 547 K/UL (150-450); RED BLOOD COUNT 3.49 M/UL (4.70-6.10); RED CELL DISTRIBUTION WIDTH 14.7 % (11.6-14.8)
[2020-01-09 07:23] LABS: ALANINE AMINOTRANSFERASE 18 U/L (12-78); ALBUMIN 2.8 G/DL (3.4-5.0); ALBUMIN/GLOBULIN RATIO 0.8 (1.0-2.7); ALKALINE PHOSPHATASE 101 U/L (46-116); AMYLASE 37 U/L (25-115); ANION GAP 8 mmol/L (5-15); ASPARTATE AMINO TRANSFERASE 24 U/L (15-37); BILIRUBIN,TOTAL 1.2 MG/DL (0.2-1.0); BLOOD UREA NITROGEN 9 mg/dL (7-18); CALCIUM 8.4 MG/DL (8.5-10.1); CARBON DIOXIDE 30 MMOL/L (21-32); CHLORIDE 106 MMOL/L (98-107); CREATININE 1.2 MG/DL (0.55-1.30); INR 1.2 (0.9-1.1); POTASSIUM 3.7 MMOL/L (3.5-5.1); SODIUM 143 MMOL/L (136-145)
[2020-01-09 07:28] LABS: BILIRUBIN,DIRECT 0.3 MG/DL (0.0-0.3)
[2020-01-09 07:33] LABS: WHITE BLOOD COUNT 22.9 K/UL (4.8-10.8)
[2020-01-09 08:00] VITALS: BP 144/83
[2020-01-09] MEDS: Levofloxacin 500mg tab ORAL SCH (09:31)
[2020-01-09] MEDS: Docusate 100mg cap ORAL SCH (09:31)
[2020-01-09] MEDS: Ascorbic Acid 500mg tab ORAL SCH (09:31)
[2020-01-09] MEDS ORDERED: Milk of Magnesia 30ml Ud ORAL ONE (09:45)
--- NOTE | 2020-01-09 10:27 | Pulmonology Progress Note ---
Subjective Interval Events: Seen with RN Constitutional: Reports: no symptoms HEENT: Repors: no symptoms Respiratory: Reports: no symptoms Cardiovascular: Reports: no symptoms Allergies: Coded Allergies: No Known Allergies (Unverified , 12/27/19) Objective Last 24 Hour Vital Signs Date Time Temp Pulse Resp B/P (MAP) Pulse Ox O2 Delivery O2 Flow Rate FiO2 01/09/20 08:00 98.4 76 21 144/83 (103) 97 01/09/20 04:00 98.6 72 20 150/76 (100) 96 01/09/20 00:00 98.4 78 18 137/74 (95) 96 01/08/20 21:00 Room Air 01/08/20 20:00 98.1 85 18 146/83 (104) 95 01/08/20 16:00 98.2 76 18 146/83 (104) 94 01/08/20 12:00 98.6 75 18 152/88 (109) 94 Intake and Output 01/08/20 01/09/20 19:00 07:00 Intake Total 1425 ml 1075 ml Output Total 600 ml Balance 1425 ml 475 ml IV Total 825 ml 825 ml Other 600 ml 250 ml Output Urine Total 600 ml # Voids 4 General Appearance: no acute distress HEENT: normocephalic Respiratory: chest wall non-tender, lungs clear Cardiovascular: normal peripheral pulses, normal rate Abdomen: normal bowel sounds Microbiology Date/Time Source Procedure Growth Status 01/07/20 21:00 Rectum Received Laboratory Tests 01/09/20 04:50: White Blood Count 22.9*H, Red Blood Count 3.49L, Hemoglobin 9.8L, Hematocrit 28.8L, Mean Corpuscular Volume 82, Mean Corpuscular Hemoglobin 28.1, Mean Corpuscular Hemoglobin Concent 34.1, Red Cell Distribution Width 14.7, Platelet Count 547H, Mean Platelet Volume 6.2L, Neutrophils (%) (Auto) , Lymphocytes (%) (Auto) , Monocytes (%) (Auto) , Eosinophils (%) (Auto) , Basophils (%) (Auto) , Differential Total Cells Counted 100, Neutrophils % (Manual) 76H, Lymphocytes % (Manual) 8L, Monocytes % (Manual) 10, Eosinophils % (Manual) 6H, Basophils % ( Manual) 0, Band Neutrophils 0, Platelet Estimate IncreasedH, Platelet Morphology Normal, Polychromasia 1+, Hypochromasia 1+, Anisocytosis 1+, Erythrocyte Sedimentation Rate 56H, Prothrombin Time 12.8H, Prothromb Time International Ratio 1.2H, Activated Partial Thromboplast Time 33, Sodium Level 143, Potassium Level 3.7, Chloride Level 106, Carbon Dioxide Level 30, Anion Gap 8, Blood Urea Nitrogen 9, Creatinine 1.2, Estimat Glomerular Filtration Rate > 60, Glucose Level 96, Calcium Level 8.4L, Total Bilirubin 1.2H, Direct Bilirubin 0.3, Aspartate Amino Transf (AST/SGOT) 24, Alanine Aminotransferase ( ALT/SGPT) 18, Alkaline Phosphatase 101, C-Reactive Protein, Quantitative 5.5H, Total Protein 6.1L, Albumin 2.8L, Globulin 3.3, Albumin/Globulin Ratio 0.8L, Amylase Level 37, Lipase 148 Current Medications Medications (Trade) Dose Ordered Sig/Juan Carlos Route PRN Reason Start Time Stop Time Status Last Admin Dose Admin Acetaminophen/ Hydrocodone Bitart ([place] 5/325) 1 tab Q4H PRN ORAL For Pain 01/07/20 23:45 01/14/20 23:44 01/09/20 02:44 Ascorbic Acid (Vitamin C) 500 mg DAILY ORAL 01/08/20 09:00 02/07/20 08:59 01/09/20 09:31 Docusate Sodium (Colace) 100 mg TWICE A DAY ORAL 01/08/20 09:00 02/07/20 08:59 01/09/20 09:31 Levofloxacin (Levaquin) 500 mg DAILY ORAL 01/08/20 09:00 01/15/20 08:59 01/09/20 09:31 Multivitamins (Multivitamins) 1 tab DAILY ORAL 01/08/20 09:00 02/07/20 08:59 01/09/20 09:32 Ondansetron HCl (Zofran) 4 mg Q6H PRN IVP Nausea & Vomiting 01/07/20 23:45 02/06/20 23:44 Sodium Chloride 1,000 ml @ 75 mls/hr [id number] IV 01/07/20 23:45 02/06/20 23:44 01/09/20 02:31 Assessment/Plan Assessment/Plan IMPRESSION: 1. Myelodysplasia with persistent leukocytosis. 2. Electrolyte disorder 3. Renal dysfunction. 4. Hematuria DISCUSSION: Continue antibiotics, oxygen, pulmonary hygiene, and pain control. I will follow. Discussed with Dr. Sims. Monitor hematuria and urinary output Carlos So Omar Syed MD Jan 09, 2020 10:27
[2020-01-09 12:00] VITALS: BP 142/81
--- NOTE | 2020-01-09 12:41 | Surgery Progress Note ---
Surgery Progress Note Subjective Symptoms: improved, tolerating diet, voiding well, passing flatus, pain decreased Objective Last 24 Hour Vital Signs Date Time Temp Pulse Resp B/P (MAP) Pulse Ox O2 Delivery O2 Flow Rate FiO2 01/09/20 12:00 98.3 81 20 142/81 (101) 96 01/09/20 09:00 Room Air 01/09/20 08:00 98.4 76 21 144/83 (103) 97 01/09/20 04:00 98.6 72 20 150/76 (100) 96 01/09/20 00:00 98.4 78 18 137/74 (95) 96 01/08/20 21:00 Room Air 01/08/20 20:00 98.1 85 18 146/83 (104) 95 01/08/20 16:00 98.2 76 18 146/83 (104) 94 I&O Intake and Output 01/08/20 01/09/20 19:00 07:00 Intake Total 1425 ml 1075 ml Output Total 600 ml Balance 1425 ml 475 ml IV Total 825 ml 825 ml Other 600 ml 250 ml Output Urine Total 600 ml # Voids 4 Dressing: dry Wound: clean Cardiovascular: RSR Respiratory: clear Abdomen: soft, non-tender, present bowel sounds Extremities: no edema, no tenderness, no cyanosis Laboratory Tests Test 01/09/20 04:50 White Blood Count 22.9 K/UL (4.8-10.8) *H Red Blood Count 3.49 M/UL (4.70-6.10) L Hemoglobin 9.8 G/DL (14.2-18.0) L Hematocrit 28.8 % (42.0-52.0) L Mean Corpuscular Volume 82 FL (80-99) Mean Corpuscular Hemoglobin 28.1 PG (27.0-31.0) Mean Corpuscular Hemoglobin Concent 34.1 G/DL (32.0-36.0) Red Cell Distribution Width 14.7 % (11.6-14.8) Platelet Count 547 K/UL (150-450) H Mean Platelet Volume 6.2 FL (6.5-10.1) L Neutrophils (%) (Auto) % (45.0-75.0) Lymphocytes (%) (Auto) % (20.0-45.0) Monocytes (%) (Auto) % (1.0-10.0) Eosinophils (%) (Auto) % (0.0-3.0) Basophils (%) (Auto) % (0.0-2.0) Differential Total Cells Counted 100 Neutrophils % (Manual) 76 % (45-75) H Lymphocytes % (Manual) 8 % (20-45) L Monocytes % (Manual) 10 % (1-10) Eosinophils % (Manual) 6 % (0-3) H Basophils % (Manual) 0 % (0-2) Band Neutrophils 0 % (0-8) Platelet Estimate Increased H Platelet Morphology Normal Polychromasia 1+ Hypochromasia 1+ Anisocytosis 1+ Erythrocyte Sedimentation Rate 56 MM/HR (0-20) H Prothrombin Time 12.8 SEC (9.30-11.50) H Prothromb Time International Ratio 1.2 (0.9-1.1) H Activated Partial Thromboplast Time 33 SEC (23-33) Sodium Level 143 MMOL/L (136-145) Potassium Level 3.7 MMOL/L (3.5-5.1) Chloride Level 106 MMOL/L (98-107) Carbon Dioxide Level 30 MMOL/L (21-32) Anion Gap 8 mmol/L (5-15) Blood Urea Nitrogen 9 mg/dL (7-18) Creatinine 1.2 MG/DL (0.55-1.30) Estimat Glomerular Filtration Rate > 60 mL/min (>60) Glucose Level 96 MG/DL (74-106) Calcium Level 8.4 MG/DL (8.5-10.1) L Total Bilirubin 1.2 MG/DL (0.2-1.0) H Direct Bilirubin 0.3 MG/DL (0.0-0.3) Aspartate Amino Transf (AST/SGOT) 24 U/L (15-37) Alanine Aminotransferase (ALT/SGPT) 18 U/L (12-78) Alkaline Phosphatase 101 U/L (46-116) C-Reactive Protein, Quantitative 5.5 mg/dL (0.00-0.90) H Total Protein 6.1 G/DL (6.4-8.2) L Albumin 2.8 G/DL (3.4-5.0) L Globulin 3.3 g/dL Albumin/Globulin Ratio 0.8 (1.0-2.7) L Amylase Level 37 U/L (25-115) Lipase 148 U/L (73-393) Plan Problems: (1) Abnormal urogenital findings Assessment & Plan: Patient unfortunately had Cuevas replaced in emergency department for potential clogged Cuevas and urinary retention. CT reviewed and there is a potential that the anastomosis was compromised by reinsertion of Cuevas. Currently he is urinating okay and more comfortable without the Cuevas in place. No nausea vomiting fever chills. Myelodysplasia labs stable Exam actually improved as compared to prior admission is pubic scrotal penile swelling all improved. Hematuria noted in patient's voids. Discussed case with urology will monitor closely may need reexploration In which I will be available for versus potential scope and catheter placement. We will monitor over the course of the next day or 2 with planning as clinical exam noted. Thank you for let me participate in patient's care will follow with recommendations okay for diet Trend labs (2) Prostate CA (3) Postoperative abdominal pain Assessment & Plan: Pelvis/Peritoneum: Perihepatic perisplenic ascites is unchanged. Mid mesenteric fluid is seen. Lower anterior abdominal fluid around the omentum and abutting the anterior peritoneal surface is seen. Decreased size of the previously identified upper pelvic fluid collection. Left inguinal fat containing hernia with fluid at its distal aspect proximal to the scrotum. Portion of the presumed urinary bladder is seen herniating into the more proximal aspect of the inguinal canal. Cuevas catheter is seen. It extends through the prostate bed into the upper pelvis. There is a bilobed fluid-filled structure in the pelvis. The shape of anterior collection appears to be the urinary bladder with superior anterior aspect herniating into the left inguinal hernia. Tip of the Cuevas catheter is in the more posterior fluid collection. Previously demonstrated this to be in the anterior collection which was presumed to be the urinary bladder. A contrast exam either antegrade or retrograde would be helpful in further clarifying the structures. Areas of retroperitoneal hemorrhage along the lower anterior peritoneal surface, foci of gas near the left pelvic sidewall, upper abdomen, around the Cuevas catheter and posterior to the pubic symphysis is seen. Bones: No change IMPRESSION: 1. Patient is status post recent laparoscopic prostatectomy. There has been interval repositioning of the Cuevas catheter. 2. Altered anatomy near the surgical bed. Antegrade or retrograde administration of contrast would be helpful in clarifying bladder versus adjacent fluid collections. 3. Foci of hematomas extra and intraperitoneal, foci of gas in the pelvic soft tissues both intra-and extraperitoneal are noted. 4. Developing abscesses are not excluded. 5. Mild decrease in bilateral lower lobe atelectasis/infiltrate with moderate residual changes. Small left pleural effusion. 6. Persistent mild ascites, massive splenomegaly. (4) Urinary retention (5) Myelodysplastic disease Additional Comments d/c home today f/u outpatient tomorrow thank you Thomas Lomeli Jan 09, 2020 12:41
--- NOTE | 2020-01-09 14:42 | Diagnostic Imaging Report ---
Indication: Abdominal pain Technique: Supine view of the abdomen Comparison: 12/28/2019 Findings: Splenomegaly is again demonstrated. Surgical clips project to the right of the spine. The bowel gas pattern is unremarkable. No gaseous distention of large or small bowel. Skin benita are seen in the pelvis Impression: No definite acute process Splenomegaly
--- NOTE | 2020-01-10 08:13 | Discharge Summary ---
Discharge Summary Discharge Summary _ DATE OF ADMISSION: 01/07/2020 DATE OF DISCHARGE: 01/09/2020 DISCHARGED BY: Dr. Mcconnell REASON FOR ADMISSION: 69 years old male with past medical history of prostate cancer, status post prostatectomy, myelodysplastic syndrome, presented to emergency room for evaluation due to decreased urine output from Cuevas catheter. Patient also reported decreased discomfort increased discomfort in the suprapubic region. He denied fever and chills. He denied chest pain. Patient reported not having any urine output for over 10 hours. Patient also reported increased suprapubic discomfort. Laboratory work-up revealed significant leukocytosis WBC 22.6, hemoglobin 9.5 hematocrit 30.3 platelet count 578. Potassium 3.1. BUN 11, creatinine 1.1. Glucose 97. CT scan of the abdomen and pelvis revealed status post recent laparoscopic prostatectomy. There has been interval repositioning of the Cuevas catheter. Altered anatomy near the surgical bed. Foci of hematomas extra and intraperitoneal, foci of gas in the pelvic soft tissues both intra-and extraperitoneal noted. Patient was recently discharged after open prostatectomy. The procedure was prolonged and complicated, but patient had excellent outcome and was discharged home with a Cuevas catheter in place. Patient then was readmitted due to urine leakage around the Cuevas and then discharged after irrigation. He returned back to emergency room reporting decreased urine output with abdominal distention and pain. Cuevas catheter was replaced . Due to significant hematuria catheter was then removed by urologist . Patient admitted to Med Surg floor for further management. CONSULTANTS: surgery Dr. Lomeli [facility] COURSE: Patient admitted to medical surgical floor and started on IV hydration and empiric antibiotics. Renal parameters and electrolytes were closely monitored. Hypokalemia corrected. Pain management was addressed as needed. Urinary output was closely monitored. General surgeon seen and evaluated the patient. CT scan showed potential that anastomosis was compromised by reinsertion of Cuevas. After removal of Cuevas, patient was urinating well and was more comfortable without Cuevas in the place. No fever no chills . No nausea no vomiting. Abdominal exam improved. Some hematuria noted with voiding. Case was discussed with patient's operating urologist Dr Sims, who stated that patient may need later reexploration . Hemoglobin hematocrit were closely monitored and remained at baseline . Prior to discharge hemoglobin 9.8 , hematocrit 28.8. Empiric antibiotic and IV hydration continued. Leukocytosis was most likely due to myelodysplastic syndrome. Patient remained afebrile. Supportive care provided. Patient clinically stabilized and was ready for discharge home with outpatient follow-up with urologist. FINAL DIAGNOSES: Myelodysplasia with persistent leukocytosis Prostate CA , status post recent open prostatectomy Postoperative abdominal pain Renal dysfunction Hematuria Electrolyte abnormalities/ hypokalemia DISCHARGE MEDICATIONS: See Medication Reconciliation list. DISCHARGE INSTRUCTIONS: Patient was discharged home. Patient to follow-up as outpatient with a urologist for further management I have been assigned to dictate discharge summary for this account. I was not involved in the patient's management. Ginette Simpson NP Jan 10, 2020 08:13
== END 2020-01-09 17:05 | disposition home or self-care (01) | DRG 812 ==
LOC: EMR 16:34 → EDBEDREQ 18:36 → 3E 19:06
DX: D46.9 Myelodysplastic syndrome, unspecified (principal); R31.9 Hematuria, unspecified; E87.8 Other disorders of electrolyte and fluid balance, not elsewhere classified; N28.9 Disorder of kidney and ureter, unspecified; Z85.46 Personal history of malignant neoplasm of prostate; G89.18 Other acute postprocedural pain; R10.9 Unspecified abdominal pain; Z90.79 Acquired absence of other genital organ(s)
CPT/HCPCS: 36415; 74018; 74176; 80048; 80053; 82150; 82248; 83690; 85007; 85025; 85610; 85651; 85730; 86140; 87081; 99285; J7030